=== PATIENT | male | born 1955 | race Caucasian/White ===

== ENCOUNTER 2021-11-15 01:56 | Day surgery (SDC) | payer BC, SELFPAY ==
[2021-11-01 14:39] VITALS: BMI 25.1
[2021-11-15 07:04] VITALS: BP 125/82; PULSE 69; RESP 20; O2SAT 98; BMI 24.7
[2021-11-15] MEDS: LACTATED RINGERS 1,000 ML 150 ML IV CONT (07:17)
--- NOTE | 2021-11-15 07:31 | WPDANESEPPF ---
Anes - Initial Pre Proc Eval Procedure: Operation Date: 11/15/21 08:00 Proposed Procedures p Colonoscopy - Morales Moffett MD Date/Time: 11/15/21 07:31 Surgeon: Morales Moffett MD Pre Op Diagnosis: positive cologuard Patient Data Age: 66 Gender: M Height: 1.83 m Weight: 82.8 kg Last Vital Signs Pulse 69 11/15/21 07:04 Resp 20 11/15/21 07:04 BP 125/82 11/15/21 07:04 Pulse Ox 98 11/15/21 07:04 O2 Del Method Room Air 11/15/21 07:04 Allergies Allergy/AdvReac Type Severity Reaction Status Date / Time No Known Allergies Allergy Verified 11/15/21 07:03 Home Medications Medication Instructions Recorded Confirmed Type testosterone cypionate 200 mg/mL 200 mg IM .every 2 weeks 01/05/21 11/01/21 History intramuscular oil (Depo-Testosterone) sildenafil 100 mg tablet 100 mg PO DAILY PRN sexual 05/25/21 11/01/21 Rx activity #30 tabs Patient hx anesthesia problems: none Family hx anesthesia problems: none Results Review: All pre-operative results and documents have been reviewed as part of the pre-operative evaluation. [facility] Past Medical History Medical History Hepatitis C antibody test negative (08/09/15) Pancreatic cyst Villous adenoma of gallbladder Surgical History Surgical History Hx of cholecystectomy Family History Family History Father Family history of malignant neoplasm Family history of cardiovascular disease, Onset Age: 72 Mother Family history of Alzheimer's disease Family history of dementia Other Diabetes mellitus Social History Social History (Updated 10/12/21 @ 08:59 by Ana Cullen CMA) Smoking status: Current some day smoker Alcohol intake: current Drinks per week: 5 Substance use type: does not use Anes - Eval Final PreProcedure Day of Procedure 11/15/21 07:31 Patient weight: normal Heart: regular rate and rhythm Lungs: clear to auscultation Airway: Mallampati scale class II Neurological: alert and oriented Last oral intake: >/= 8 hours ASA classification: II Emergent: no Anesthetic plan: proceed Anesthesia type and monitoring: general GIVS and standard monitoring Results Review: All pre-operative results and documents have been reviewed as part of the pre-operative evaluation. Informed Consent: The patient's anesthetic plan and its attendant risks and benefits were discussed with the patient/family/POA. Questions were solicited and answers provided to the satisfaction of the patient/family/POA.
--- NOTE | 2021-11-15 07:50 | PM.HPGS ---
History of Present Illness History of Present Illness Consent: Risks, benefits, and alternatives have been discussed and questions answered. Patient agrees to proceed with procedure. Chief complaint: positive cologuard Narrative: Kenton Gunn is a 66 year old male here for positive cologuard, last colonoscopy about 11 years ago Review of Systems Constitutional: Constitutional: Denies headache(s) and Denies weakness Eyes: Eyes: Denies blurry vision ENT: Reports Normal hearing present, Denies headache(s) and Denies neck pain Cardiovascular: Cardiovascular: Denies chest pain and Denies dyspnea Respiratory: Respiratory: Denies dyspnea Gastrointestinal: Gastrointestinal: Reports no additional gastrointestinal complaints Genitourinary: Genitourinary: Denies dysuria Musculoskeletal: Musculoskeletal: Denies neck pain Integumentary/Breasts: Skin/Breast: Denies dry skin Neurologic: Reports Normal hearing present, Denies headache(s) and Denies weakness Psychiatric: Psychiatric: Denies anxiety Endocrine: Endocrine: Denies change in body appearance Hematologic/Lymphatic: Hematologic/Lymphatic: Denies easy bleeding Allergic/Immunologic: Allergic/Immunologic: Denies urticaria PMFSH Past Medical History Medical History Hepatitis C antibody test negative (08/09/15) Pancreatic cyst Villous adenoma of gallbladder Surgical History Surgical History Hx of cholecystectomy Family History Family History Father Family history of malignant neoplasm Family history of cardiovascular disease, Onset Age: 72 Mother Family history of Alzheimer's disease Family history of dementia Other Diabetes mellitus Social History Social History (Updated 10/12/21 @ 08:59 by Ana Cullen [facility]) Smoking status: Current some day smoker Alcohol intake: current Drinks per week: 5 Substance use type: does not use Meds Home Medications and Allergies Home Medications Medication Instructions Recorded Confirmed Type testosterone cypionate 200 mg/mL 200 mg IM .every 2 weeks 01/05/21 11/01/21 History intramuscular oil (Depo-Testosterone) sildenafil 100 mg tablet 100 mg PO DAILY PRN sexual 05/25/21 11/01/21 Rx activity #30 tabs Allergies Allergy/AdvReac Type Severity Reaction Status Date / Time No Known Allergies Allergy Verified 11/15/21 07:03 Vital Signs Vital Signs - 24 hr 11/15/21 07:04 Pulse Rate 69 Respiratory Rate 20 Blood Pressure 125/82 Pulse Oximetry 98 Oxygen Delivery Room Air Exam Const: General: comfortable and no acute distress HENMT: General nose exam: Normal nares present Eyes: General: appearance normal, both eyes and all related structures Neck: Neck: no JVD Resp: Auscultation: clear to auscultation bilaterally Cardio: Rate: regular rate Rhythm: regular rhythm GI: Inspection: non-distended GI Palp: Yes Soft to palpation Skin: General skin exam: normal color Neuro: General: gait normal Speech: normal speech Extrem: General: normal to inspection Psych: Mental Status: mental status grossly normal Assessment and Plan Assessment and plan (1) Positive colorectal cancer screening using Cologuard test: Code(s): R19.5 - Other fecal abnormalities Status: Acute Assessment and Plan: colonoscopy
[2021-11-15 08:22] VITALS: BP 113/73; PULSE 64; RESP 15; O2SAT 96
[2021-11-15 08:32] VITALS: BP 121/81; PULSE 67; RESP 21; O2SAT 98
[2021-11-15 08:42] VITALS: BP 122/81; PULSE 62; RESP 17; O2SAT 98
== END 2021-11-15 08:47 | disposition home or self-care (01) ==
PROVIDERS: PCP Family Medicine; Visit Provider Internal Medicine Gastroenterology
PROC: 0DJD8ZZ Inspection of Lower Intestinal Tract, Via Natural or Artificial Opening Endoscopic (ICD-10-PCS; CPT 45378; principal; 2021-11-15 08:00)
DX: R19.5 Other fecal abnormalities (principal); K51.40 Inflammatory polyps of colon without complications; K57.30 Diverticulosis of large intestine without perforation or abscess without bleeding; K64.8 Other hemorrhoids; K86.2 Cyst of pancreas; Z90.49 Acquired absence of other specified parts of digestive tract; F17.210 Nicotine dependence, cigarettes, uncomplicated
CPT/HCPCS: 45385; 88305; J2001; J2704; J7120

== ENCOUNTER 2022-04-30 09:47 | Outpatient (CLI) | payer BC, SELFPAY ==
[2022-04-30 12:49] LABS: Kit Draw Collected
== END 2022-04-30 09:48 | disposition home or self-care (01) ==
LOC: ANHGOSHLAB 09:49
PROVIDERS: PCP Family Medicine; Visit Provider Nurse Practitioner
DX: R79.89 Other specified abnormal findings of blood chemistry (principal)
CPT/HCPCS: 36415

== ENCOUNTER 2022-06-21 11:47 | Emergency (ER) | payer BC, MEDICARE, SELFPAY ==
[2022-06-21 11:55] VITALS: BP 153/91; PULSE 80; RESP 16; TEMP 37.3; O2SAT 99
--- NOTE | 2022-06-21 11:55 | ED.URI ---
HPI - URI/Sore Throat General Chief Complaint: Upper Respiratory Infection Stated Complaint: SINUS CONGESTION/SORE THROAT Source: patient and RN notes reviewed History of Present Illness HPI Narrative: 66 yo M presents to urgent care with complaints of congestion, runny nose, sore throat, and ears feeling clogged x 1 week. Pt states he can usually kick a cold but this one is not going away. Pt reports an intermittent cough. Denies any chest pain, SOB, LOVE, ear pain, abdominal pain, or vomiting. Pt took an ASA yesterday for his symptoms. Related Data Allergies Allergy/AdvReac Type Severity Reaction Status Date / Time No Known Allergies Allergy Verified 05/04/22 08:33 Review of Systems Review of Systems: Pertinent positives and pertinent negatives per HPI. [facility] Past Medical History Medical History Abnormal findings on imaging of biliary tract Chronic cholecystitis Gallbladder mass Hepatitis C antibody test negative (08/09/15) Pancreatic cyst Villous adenoma of gallbladder Surgical History Surgical History Hx of cholecystectomy Family History Family History Father Family history of malignant neoplasm Family history of cardiovascular disease, Onset Age: 72 Mother Family history of Alzheimer's disease Family history of dementia Other Diabetes mellitus Social History Social History Smoking status: Never smoker Alcohol intake: current Drinks per week: 5 Substance use type: does not use Lack of Transportation: No Lack of Food: Never True Current Housing: I Have Housing Concerned About Future Housing: No Difficulty Paying Gas/Electric Bills: No Difficulty Paying for Meds: No Currently Unemployed: No Education: Associate Degree Difficulty w/ Childcare or Family Care: No Comments At the time of my signature, I reviewed and agree with the nursing past medical, surgical, social, and family history. There is no relevant family history pertinent to the patient complaint. Exam Narrative: GENERAL: This is a well-nourished, well-developed patient, in no apparent distress. HEAD: normocephalic, atraumatic. EYES: PERRL. Sclera clear/white. Vision is grossly intact. EARS: External ears normal, auditory canals clear and without drainage, TMs normal without perforation. Hearing grossly intact. NOSE:Congestion THROAT: Mucous membranes moist, posterior pharynx erythremic NECK: Neck supple, non-tender without lymphadenopathy, masses or thyromegaly. CARDIOVASCULAR: Regular rate and rhythm without murmurs, gallops, or rubs. RESPIRATORY: Clear to auscultation. Breath sounds equal bilaterally. No wheezes, rales, or rhonchi. GASTROINTESTINAL: Abdomen soft, non-tender, nondistended. Bowel sounds are active. No hepato-splenomegaly, or palpable masses. No guarding. SKIN: warm, intact with no suspicious lesions or rash, good texture and turgor. NEURO: awake, alert, and oriented to person, place and time. There were no obvious focal neurologic abnormalities. Course Course Level of Care: Express Care Visit Vital Signs Vital signs: Vital Signs Temperature 99.2 F 06/21/22 11:55 Pulse Rate 80 06/21/22 11:55 Respiratory Rate 16 06/21/22 11:55 Blood Pressure 153/91 H 06/21/22 11:55 Pulse Oximetry 99 06/21/22 11:55 Oxygen Delivery Room Air 06/21/22 11:55 Temperature 99.2 F 06/21/22 11:55 Pulse Rate 80 06/21/22 11:55 Respiratory Rate 16 06/21/22 11:55 Blood Pressure 153/91 H 06/21/22 11:55 Pulse Oximetry 99 06/21/22 11:55 Oxygen Delivery Room Air 06/21/22 11:55 Reviewed. MDM - URI/Sore Throat MDM Narrative Medical decision making narrative: Return to urgent care or go to the ER for new or worsening symptoms. Avoid s
== END 2022-06-21 12:07 | disposition home or self-care (01) ==
PROVIDERS: Emergency Provider Nurse Practitioner Family; PCP Family Medicine
DX: J01.90 Acute sinusitis, unspecified (principal)
CPT/HCPCS: 99213; G0463

== ENCOUNTER 2022-10-22 08:17 | Outpatient (CLI) | payer BC, MEDICARE, SELFPAY ==
[2022-10-22 12:01] LABS: Kit Draw Collected
== END 2022-10-22 08:18 | disposition home or self-care (01) ==
LOC: ANHGOSHLAB 08:19
PROVIDERS: PCP Family Medicine; Visit Provider Nurse Practitioner
DX: M10.9 Gout, unspecified (principal)
CPT/HCPCS: 36415

== ENCOUNTER 2022-11-14 08:53 | Outpatient (CLI) | payer BC, MEDICARE, SELFPAY ==
--- NOTE | 2022-11-14 08:56 | EST_ITS ---
Patient Info Name: Kenton Gunn Age: 67 years : 1955 Gender: Male Ht: 72 in Wt: 185 lbs BSA: 2.07 m2 HR: 65 bpm BP: 137 / 80 mmHg Heart Rhythm: Sinus Rhythm Exam Date: 11/14/2022 9:11 AM Exam Location: [facility] Stress Patient Status: Outpatient Admit Date: 11/14/2022 Staff Ordering Physician: Lennie Alaniz Attending Provider: Lennie Alaniz Exercise Technologist: Susana Gómez RDCS Exercise Physician: Miguel Paulino DO Exam Type: CA stress test treadmill Study Info An exercise stress test was performed. Summary 1. 1. Negative Philip exercise stress test for ischemic ST changes by ECG criteria. 2. 2. Good functional capacity, achieving 11.5 METs of workload. 3. 3. Hypertensive response to exercise. 4. 4. Appropriate HR response to exercise. 5. 5. Appropriate HR recovery at 1 minute post exercise. 6. 6. No imaging with stress testing. 7. 7. Patient informed of the above results. Protocol: Philip Stress ECG Details Stage: REST Duration (min): 1 min : 54 sec Speed (mph): 0.0 Grade (%): 0 HR (bpm): 67 SBP (mmHg): 137 DBP (mmHg): 80 METS: --- Stage: REST Duration (min): 6 min : 39 sec Speed (mph): 0.0 Grade (%): 0 HR (bpm): 68 SBP (mmHg): 137 DBP (mmHg): 80 METS: --- Stage: STAGE 1 Duration (min): 1 min : 0 sec Speed (mph): 1.7 Grade (%): 10 HR (bpm): 85 SBP (mmHg): 137 DBP (mmHg): 80 METS: --- Stage: STAGE 1 Duration (min): 2 min : 0 sec Speed (mph): 1.7 Grade (%): 10 HR (bpm): 89 SBP (mmHg): 137 DBP (mmHg): 80 METS: --- Stage: STAGE 1 Duration (min): 3 min : 0 sec Speed (mph): 1.7 Grade (%): 10 HR (bpm): 95 SBP (mmHg): 170 DBP (mmHg): 82 METS: --- Stage: STAGE 2 Duration (min): 1 min : 0 sec Speed (mph): 2.5 Grade (%): 12 HR (bpm): 99 SBP (mmHg): 170 DBP (mmHg): 82 METS: --- Stage: STAGE 2 Duration (min): 2 min : 0 sec Speed (mph): 2.5 Grade (%): 12 HR (bpm): 104 SBP (mmHg): 182 DBP (mmHg): 87 METS: --- Stage: STAGE 2 Duration (min): 3 min : 0 sec Speed (mph): 2.5 Grade (%): 12 HR (bpm): 104 SBP (mmHg): 182 DBP (mmHg): 87 METS: --- Stage: STAGE 3 Duration (min): 1 min : 0 sec Speed (mph): 3.4 Grade (%): 14 HR (bpm): 113 SBP (mmHg): 197 DBP (mmHg): 82 METS: --- Stage: STAGE 3 Duration (min): 2 min : 0 sec Speed (mph): 3.4 Grade (%): 14 HR (bpm): 117 SBP (mmHg): 197 DBP (mmHg): 82 METS: --- Stage: STAGE 3 Duration (min): 3 min : 0 sec Speed (mph): 3.4 Grade (%): 14 HR (bpm): --- SBP (mmHg): 211 DBP (mmHg): 113 METS: --- Stage: STAGE 4 Duration (min): 0 min : 41 sec Speed (mph): 4.2 Grade (%): 16 HR (bpm): 128 SBP (mmHg): 211 DBP (mmHg): 113 METS: --- Stage: RECOVERY Duration (min): 0 min : 18 sec Speed (mph): 0.0 Grade (%): 0 HR (bpm): 129 SBP (mmHg): 211 DBP (mmHg): 113 METS:
== END 2022-11-14 08:54 | disposition home or self-care (01) ==
LOC: ANHCARD 08:54
PROVIDERS: PCP Family Medicine; Visit Provider Nurse Practitioner
DX: R07.9 Chest pain, unspecified (principal)
CPT/HCPCS: 93017

== ENCOUNTER 2023-03-14 08:41 | Emergency (ER) | payer BC, MEDICARE, SELFPAY ==
--- NOTE | 2023-03-14 08:51 | ED.URI ---
HPI - URI/Sore Throat General Chief Complaint: Upper Respiratory Infection Stated Complaint: Sore Throat, Drainage Source: patient, RN notes reviewed and old records reviewed Mode of arrival: ambulatory Limitations: no limitations History of Present Illness HPI Narrative: 59-year-old male presents to Express Care with complaint of cough, congestion that started yesterday. Patient taking ibuprofen. Patient denies dizziness, weakness, chest pain, shortness of breath. MD elicited complaint: cough and nasal congestion Onset (ago): day(s) (1) Related Data Allergies Allergy/AdvReac Type Severity Reaction Status Date / Time No Known Allergies Allergy Verified 03/14/23 08:47 Review of Systems Constitutional: Constitutional: Reports no additional constitutional complaints, Denies body ache(s), Denies chills, Denies fatigue, Denies fever(s) and Denies headache(s) Eyes: Eyes: Reports no additional eye complaints and Denies blurry vision ENT: Reports system reviewed and no additional complaints, except as documented, Denies vertigo, Denies dizziness, Denies ear discharge, Denies otalgia, Denies facial pain, Denies headache(s), Reports nasal congestion, Denies nasal discharge, Denies sinus pain, Denies sinus pressure and Denies sore throat Cardiovascular: Cardiovascular: Reports no additional cardiovascular complaints, Denies chest pain, Denies chest pain at rest, Denies rapid heart rate and Denies dyspnea Respiratory: Respiratory: Reports no additional respiratory complaints, Reports chest congestion, Reports cough, Denies pain on inspiration, Denies pain with cough and Denies dyspnea Gastrointestinal: Gastrointestinal: Denies abdominal pain, Denies diarrhea, Denies nausea and Denies vomiting Integumentary/Breasts: Skin/Breast: Denies rash Neurologic: Reports system reviewed and no additional complaints, except as documented, Denies vertigo, Denies dizziness and Denies headache(s) Endocrine: Endocrine: Denies fatigue PMFSH Past Medical History Medical History Abnormal findings on imaging of biliary tract Chronic cholecystitis Gallbladder mass Hepatitis C antibody test negative (08/09/15) Pancreatic cyst Villous adenoma of gallbladder Surgical History Surgical History Hx of cholecystectomy Family History Family History Father Family history of malignant neoplasm Family history of cardiovascular disease, Onset Age: 72 Mother Family history of Alzheimer's disease Family history of dementia Other Diabetes mellitus Social History Social History Smoking status: Never smoker Alcohol intake: current Drinks per week: 5 Substance use type: does not use Lack of Transportation: No Lack of Food: Never True Current Housing: I Have Housing Concerned About Future Housing: No Difficulty Paying Gas/Electric Bills: No Difficulty Paying for Meds: No Currently Unemployed: No Education: Associate Degree Difficulty w/ Childcare or Family Care: No Comments At the time of my signature, I reviewed and agree with the nursing past medical, surgical, social, and family history. There is no relevant family history pertinent to the patient complaint. Exam Const: General: cooperative, healthy appearing, no acute distress and well nourished Nutritional Appearance: well nourished Orientation/consciousness: patient oriented x3 Limitations: no limitations HENMT: Head: normal to inspection and normocephalic Ears: external ears normal, TM's normal bilaterally, mastoids normal and Abnormal EAC present Face/Nose/Sinus: normal facial exam Face and sinus: normal facial exam Mouth: Yes Normal oral and palatal mucosa present, Yes oropharynx normal and Yes moist mucous membranes Throat:
[2023-03-14 08:52] VITALS: BP 132/76; PULSE 88; RESP 16; TEMP 36.6; O2SAT 100
== END 2023-03-14 09:19 | disposition home or self-care (01) ==
PROVIDERS: Emergency Provider Registered Nurse; PCP Family Medicine
DX: J06.9 Acute upper respiratory infection, unspecified (principal); Z20.822 Contact with and (suspected) exposure to COVID-19
CPT/HCPCS: 87081; 87426; 87804; 87880; 99213; C9803; G0463

== ENCOUNTER 2023-08-28 08:04 | Outpatient (CLI) | payer BC, MEDICARE, SELFPAY ==
--- NOTE | ~2023-08-28 | XR_ITS ---
XR shoulder RT min 2V 08/28/2023 08:23 Indication: Right shoulder pain Procedure: 5 views right shoulder Comparison: No prior studies for comparison. Findings: There is polyarticular osteoarthritis of the right shoulder. There are loose bodies adjacen t to the acromioclavicular joint. No acute fracture or traumatic malalignment. No soft tissue abnorma lity. No foreign bodies. 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 Reviewed, dictated and finalized at location B. 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
== END 2023-08-28 08:05 ==
PROVIDERS: PCP Family Medicine; Visit Provider Nurse Practitioner
DX: M19.011 Primary osteoarthritis, right shoulder (principal)
CPT/HCPCS: 73030

== ENCOUNTER 2024-06-27 08:43 | Emergency (ER) | payer BC, MEDICARE, SELFPAY ==
[2024-06-27] VITALS (40 sets, daily range): BP systolic 118–156; BP diastolic 61–96; PULSE 75–104; RESP 14–28; TEMP 36.3–36.6; O2SAT 90–99
--- NOTE | ~2024-06-27 | CT_ITS ---
EXAMINATION: CTA chest PE protocol DATE: 06/27/2024 10:40 INDICATION: Shortness of breath. Left-sided chest pain. TECHNIQUE: Computed tomography (CT) pulmonary angiogram of the chest was performed with 100 mL Omnipa que-350 intravenous contrast. Additional 3D reconstructions utilizing coronal maximum intensity proje ction (MIP) were performed. Automated exposure control and iterative reconstruction technique were em ployed. The dose-length product was 419.59 mGy-cm. COMPARISON: None FINDINGS: No pulmonary embolism. Small bilateral posterior layering pleural effusions. There are regions of raeann undglass opacity with perihilar, dependent and lower lung predominance which could represent pulmonar y edema or pneumonia. Smooth septal line thickening at the bilateral lung bases consistent with mild pulmonary edema. Heart size is normal. Atherosclerotic coronary artery calcification is. No pericardi al effusion. Thoracic aorta is normal in caliber. No pathologically enlarged thoracic lymphadenopathy . Visualized upper abdomen is unremarkable. Mild to moderate thoracic spondylosis with bridging osteo phytes at multiple levels consistent with diffuse idiopathic skeletal hyperostosis (DISH). Severe upp er lumbar spondylosis. IMPRESSION: 1. No pulmonary embolism. 2. Patchy bilateral groundglass opacities with distribution and presence of smooth septal line thicke phillip at the bilateral lung bases favoring pulmonary edema over pneumonia. 3. Small bilateral pleural effusions. Reviewed, dictated and finalized at location A. IMPRESSION: 1. No pulmonary embolism. 2. Patchy bilateral groundglass opacities with distribution and presence of smo oth septal line thickening at the bilateral lung bases favoring pulmonary edema over pneumonia. 3. Small bilateral pleural effusions.
--- NOTE | ~2024-06-27 | XR_ITS ---
EXAMINATION: XR chest 1V portable DATE: 06/27/2024 09:13 INDICATION: Shortness of breath and left-sided chest pain TECHNIQUE: frontal view of the chest was obtained. COMPARISON: None FINDINGS: Mild reticular opacities at the lung bases and blunting at the left cardiophrenic angle. No other air space opacities, pneumothorax or right pleural effusion. The cardiomediastinal silhouette is normal. IMPRESSION: 1. Mild reticular opacities at the bilateral lung bases which could represent atelectasis, mild pulmo nary edema or pneumonia. 2. Blunting at the left cardiophrenic angle which could represent small left pleural effusion. Reviewed, dictated and finalized at location A. IMPRESSION: 1. Mild reticular opacities at the bilateral lung bases which could represent a telectasis, mild pulmonary edema or pneumonia. 2. Blunting at the left cardiophrenic angle which could represent small left pl eural effusion.
--- NOTE | 2024-06-27 08:52 | ED_ITS ---
HPI - SOB/Dyspnea General Chief Complaint: Shortness of Breath/Dyspnea Stated Complaint: chest pain Time Seen by Provider: 06/27/24 08:52 Source: patient Mode of arrival: ambulatory Limitations: no limitations History of Present Illness HPI Narrative: 68-year-old male, Nonsmoker with a history of anxiety, dyslipidemia, gout, prediabetes with a negative stress test on 11/14/2022 presents to the ED with a one-week history of -- shortness of breath. Patient has shortness of breath at rest. He has some cough and mucoid sputum. -- left lower chest pain. Pain started after he was lifting weights with his son. Pain is rated as 4/10. No radiation of the pain. No relation to activity. -- diarrhea for the past 2-3 days. He has had 3 episodes of watery diarrhea. No blood or mucus. MD elicited complaint: shortness of breath and chest pain Onset (ago): day(s) ( 7 days) Timing: constant Severity: moderate Exacerbating factors: nothing Relieving factors: nothing Associated symptoms: chest pain and cough Treatment prior to arrival: none Related Data Home oxygen amount: none Allergies Allergy/AdvReac Type Severity Reaction Status Date / Time No Known Allergies Allergy Verified 06/27/24 09:31 Review of Systems 2 Review of Systems: All systems reviewed & are unremarkable except as noted in HPI and below Constitutional: Constitutional: Reports as per HPI and Reports no additional constitutional complaints Eyes: Eyes: Reports as per HPI and Reports no additional eye complaints ENT: Reports system reviewed and no additional complaints, except as documented and Reports as per HPI Cardiovascular: Cardiovascular: Reports as per HPI, Reports no additional cardiovascular complaints and Reports chest pain Respiratory: Respiratory: Reports as per HPI, Reports no additional respiratory complaints and Reports dyspnea Gastrointestinal: Gastrointestinal: Reports as per HPI, Reports no additional gastrointestinal complaints and Reports diarrhea Genitourinary: Genitourinary: Reports no additional male genitourinary complaints and Reports as per HPI Musculoskeletal: Musculoskeletal: Reports no additional musculoskeletal complaints and Reports as per HPI Integumentary/Breasts: Skin/Breast: Reports system reviewed and no additional complaints, except as docu and Reports as per HPI Neurologic: Reports system reviewed and no additional complaints, except as documented and Reports as per HPI Psychiatric: Psychiatric: Reports no additional psychiatric complaints, Reports as per HPI and Reports anxiety Endocrine: Endocrine: Reports no additional endocrine complaints and Reports as per HPI Hematologic/Lymphatic: Hematologic/Lymphatic: Reports no additional hematologic/lymphatic complaints and Reports as per HPI Allergic/Immunologic: Allergic/Immunologic: Reports no additional allergic/immunologic complaints and Reports as per HPI [facility] Past Medical History Medical History Gallbladder mass Chronic cholecystitis Abnormal findings on imaging of biliary tract Hepatitis C antibody test negative (08/09/15) Pancreatic cyst Villous adenoma of gallbladder Surgical History Surgical History Hx of cholecystectomy Family History Family History Father Family history of malignant neoplasm Family history of cardiovascular disease, Onset Age: 72 Mother Family history of Alzheimer's disease Family history of dementia Other Diabetes mellitus Social History Social History Smoking status: Never smoker Alcohol intake: current Drinks per week: 5 Substance use: never Substance use type: does not use Do You Feel Safe in your Home?: Yes Lack of Transportation: No Lack of Food: Never True Current Housing: I Have Housing Concerned About Future Housing: No Difficulty Paying Gas/Electric Bills: No Difficulty Paying for Meds: No Currently Unemployed: No Education: Associate Degree Difficulty w/ Childcare or Family Care: No Living arrangements: with family Occupation/Education: occupation Gender identity (if verbalized by the patient): Male Agree to blood products: Yes Exam 2 Const: General: no acute distress Nutritional Appearance: well nourished Orientation/consciousness: patient oriented x3 Limitations: no limitations HENMT: Head: normal to inspection Ears: external ears normal F rabia/Nose/Sinus: Normal external nose present Face and sinus: normal facial exam Mouth: Yes Normal oral and palatal mucosa present Throat: posterior oropharynx normal Eyes: Conjunctivae: conjunctivae normal Pupils: Equal, round and reactive pupils present EOM: EOMs intact bilaterally Direct Ophthalmoscopy: no photophobia Neck: Neck: normal visual inspection, no lymphadenopathy and no meningeal signs Chest: Chest palpation & inspection: normal inspection of the chest Resp: Effort & Inspection: normal respiratory effort Other: basilar rales. Cardio: Rate: regular rate Rhythm: regular rhythm Heart sounds: Murmur heart sound present Other: systolic murmur at the base. GI: GI Palp: Yes Soft to palpation Auscultation: normal bowel sounds O ther: No tenderness/ rigidity /rebound. : General: Yes no CVA tenderness Back/Spine/Pelvis: Back: no CVA tenderness Skin: General skin exam: normal color Rashes: no rashes Wounds: no wounds Neuro: General: patient oriented x3, moves all extremities, no meningeal signs, no focal motor deficits and CN's II-XI intact bilaterally Cranial nerves: Yes Nystagmus not present Speech: normal speech Gait exam (Neuro): Normal gait present Extrem: General: normal to inspection and no clubbing, cyanosis or edema Psych: Mental Status: mental status grossly normal Affect: normal affect Attitude: cooperative Course Course Emergency Course: Chest pain- EKG did not show any acute findings. Troponin was noted to be negative shortness of breath secondary to new onset CHF. CT is negative for PE. ABG was noted to be 749/34/61/92% on room air diarrhea Vital Signs Vital signs: Vital Signs Pulse Oximetry 99 06/27/24 08:45 Oxygen Delivery Room Air 06/27/24 08:45 Temperature 36.3 C L 06/27/24 09:06 Pulse Rate 78 06/27/24 13:20 Respiratory Rate 20 06/27/24 11:15 Blood Pressure 133/80 06/27/24 10:15 Pulse Oximetry 92 06/27/24 11:15 Oxygen Delivery Room Air 06/27/24 09:06 MDM - SOB/Dyspnea MDM Narrative Medical decision making narrative: new onset CHF chest pain Differential Diagnosis Differential diagnosis: Likely acute exacerbation of chronic obstructive airways disease, community acquired pneumonia and pulmonary embolism Medical Records Attestation: I reviewed the patient's medical records. Lab Data Attestation: I reviewed the patient's lab results. 06/27/24 09:15 06/27/24 09:15 Labs: Lab Results 06/27/24 06/27/24 06/27/24 Range/Units 09:15 09:45 11:15 WBC 15.1 H (4.8-10.8) K/mm3 RBC 4.94 (4.70-6.10) M/mm3 Hgb 15.6 H (12.4-15.3) g/dL Hct 46.5 H (37.0-46.0) % MCV 94.1 (78.0-102.0) fL MCH 31.6 H (27.0-31.0) pg MCHC 33.5 (32-36) g/dL RDW 13.2 (11.6-14.4) % Plt Count 253 (150-420) K/mm3 MPV 9.8 (8.7-11.0) fl Immature Gran % (Auto) 0.4 H (0.0-0.0) % Neut % (Auto) 73.6 H (50.0-70.0) % Lymph % (Auto) 11.1 L (18.0-42.0) % Brule % (Auto) 12.1 H (2.0-11.0) % Eos % (Auto) 2.3 (1.0-6.0) % Baso % (Auto) 0.5 (0.0-1.0) % Lymph # (Auto) 1.67 (1.10-4.50) K/mm3 Brule # (Auto) 1.82 H (0.10-0.90) K/mm3 Eos # (Auto) 0.34 (0.02-0.50) K/mm3 Baso # (Auto) 0.07 (0.00-0.10) K/mm3 Abs Immat Gran (auto) 0.06 H (0.00-0.00) K/mm3 Absolute Neuts (auto) 11.11 H (1.70-7.20) K/mm3 Absolute Nucleated RBC 0.00 (0.00-0.00) K/mm3 Nucleated RBC % 0.0 (0-0.0) % D-Dimer 0.99 H* (0.19-0.50) mg/L Sodium 137 (136-145) mmol/L Potassium 4.1 (3.5-5.1) mmol/L Chloride 104 (98-108) mmol/L Carbon Dioxide 25 (21-32) mmol/L Anion Gap 8 (4-12) mmol/L BUN 19 H (7-18) mg/dL Creatinine 0.97 (0.70-1.30) mg/dL Estim Creat Clear Calc 70 ml/min Estimated GFR > 60 (59 - ) Glucose 132 H (70-99) mg/dL Calculated Osmolality 288 (285-295) mOsm/kg Lactic Acid 1.8 (0.4-2.0) mmol/L Calcium 8.3 L (8.5-10.1) mg/dL Total Bilirubin 0.8 (0.00-1.00) mg/dL AST 25 (15-37) U/L ALT 31 (16-63) U/L Alkaline Phosphatase 72 (46-116) U/L Troponin I 36.0 (0.00-60.4) ng/L NT-Pro-B Natriuret Pep 1227 H (0-125) pg/mL Total Protein 6.1 L (6.4-8.2) g/dL Albumin 2.9 L (3.4-5.0) g/dL Urine Color Light yellow (Yellow) Urine Appearance Clear (Clear) Urine pH 6.5 (5.0-8.0) Ur Specific [place] 1.010 (1.010-1.020) Urine Protein Negative (Negative) Urine Glucose (UA) Negative (Negative) Urine Ketones Negative (Negative) Ur Blood (Man) Negative (Negative) Urine Nitrate Negative (Negative) Urine Bilirubin Negative (Negative) Urine Urobilinogen 0.2 (0.2-1.0) mg/dL Leukocyte Esterase Rfl Negative (Negative) VERA/UL Influenza A (RT-PCR) Negative (Negative) Influenza B (RT-PCR) Negative (Negative) RSV (RT-PCR) Negative (Negative) SARS-CoV-2 RNA (RT-PCR) Negative (Negative) ABG Data ABG results: 06/27/24 09:15 Puncture Site Right radial ABG pH 7.49 H ABG pCO2 33.9 L ABG pO2 61.4 L ABG HCO3 25.3 ABG O2 Saturation 91.7 L ABG Base Excess 2.5 H Oxyhemoglobin 91.1 L O2 Delivery Device Room air O2 Liters/Min 0.0 ECG Data EKG #1: ECG completion date: 06/27/24 ECG completion time: 08:50 Interpretation: sinus tachycardia with a heart rate of 104. Normal axis. No ST elevation. Discharge Plan Discharge Clinical Impression: Chest pain CHF (congestive heart failure) Qualifiers: Heart failure type: unspecified Heart failure chronicity: acute Qualified Code(s): I50.9 - Heart failure, unspecified Patient Disposition: Still a Patient Condition: Stable Additional Instructions: transfer patient to [facility]. Patient has been accepted by Patient Language: Rwandan Prescriptions: No Action sildenafil 100 mg tablet 100 mg PO DAILY PRN (Reason: sexual activity) Qty: 30 2RF Rx Instructions: administer 30 minutes to 4 hours before activity testosterone cypionate 200 mg/mL oil 200 mg IM .14 days Qty: 6 1RF allopurinol 100 mg tablet See Rx Instructions .ROUTE .COMPLEX Qty: 90 1RF Dose Instruction: 100 MG ORALLY DAILY Rx Instructions: 100 MG ORALLY DAILY Follow-up/Referrals: UNKNOWN,DOCTOR [Non-Staff] - Time of Disposition: 13:33
--- NOTE | 2024-06-27 09:06 | ECG_ITS ---
Test Date: 2024-06-27 08:50:33 Measurements Intervals [place] Rate: 104 P: 68 NM: 144 QRS: 66 QRSD: 94 T: 30 QT: 336 QTc: 442 Interpretive Statements SINUS TACHYCARDIA LEFT ATRIAL ENLARGEMENT BORDERLINE ST-T WAVE ABNORMALITY- INFERIOR LEADS BASELINE ARTIFACT- I, III, AVL, AVF BORDERLINE ECG No previous ECG available for comparison Electronically Signed On 06-29-2024 06:19:52 CDT by Miguel Paulino D.O.
[2024-06-27 09:22] LABS: Base Excess ABG 2.5 mmol/L (0-2); HCO3 ABG 25.3 mmol/L (23-29); Oxygen Saturation ABG 91.7 % (95-97); Oxyhemoglobin 91.1 % (94-100); PCO2 ABG 33.9 mmHg (35-45); PO2 ABG 61.4 mmHg (75-85); pH ABG 7.49 (7.35-7.45)
[2024-06-27 09:23] LABS: Device ROOM AIR; Modified Allen's Test Pass; Site Drawn RIGHT RADIAL
[2024-06-27 09:24] LABS: Basophils Absolute Auto 0.07 K/mm3 (0.00-0.10); Basophils Percent Auto 0.5 % (0.0-1.0); Eosinophils Absolute Auto 0.34 K/mm3 (0.02-0.50); Eosinophils Percent Auto 2.3 % (1.0-6.0); Hematocrit 46.5 % (37.0-46.0); Hemoglobin 15.6 g/dL (12.4-15.3); Immature Granulocyte Absolute 0.06 K/mm3 (0.00-0.00); Immature Granulocyte Percent A 0.4 % (0.0-0.0); Lymphocytes Absolute Auto 1.67 K/mm3 (1.10-4.50); Lymphocytes Percent Auto 11.1 % (18.0-42.0); Mean Corpuscular HGB Conc 33.5 g/dL (32-36); Mean Corpuscular Hemoglobin 31.6 pg (27.0-31.0); Mean Corpuscular Volume 94.1 fL (78.0-102.0); Mean Platelet Volume 9.8 fl (8.7-11.0); Monocytes Absolute Auto 1.82 K/mm3 (0.10-0.90); Monocytes Percent Auto 12.1 % (2.0-11.0); Neutrophils Absolute Auto 11.11 K/mm3 (1.70-7.20); Neutrophils Percent Auto 73.6 % (50.0-70.0); Platelet Count Result 253 K/mm3 (150-420); Red Blood Count 4.94 M/mm3 (4.70-6.10); Red Cell Distribution Width 13.2 % (11.6-14.4); White Blood Count 15.1 K/mm3 (4.8-10.8)
[2024-06-27 09:42] LABS: Lactic Acid Reflex 1.8 mmol/L (0.4-2.0)
[2024-06-27 09:47] LABS: Alanine Aminotransferase 31 U/L (16-63); Albumin Level 2.9 g/dL (3.4-5.0); Alkaline Phosphatase 72 U/L (46-116); Anion Gap 8 mmol/L (4-12); Aspartate Amino Transferase 25 U/L (15-37); Bilirubin,Total 0.8 mg/dL (0.00-1.00); Blood Urea Nitrogen 19 mg/dL (7-18); Calcium 8.3 mg/dL (8.5-10.1); Carbon Dioxide 25 mmol/L (21-32); Chloride 104 mmol/L (98-108); Estimated CRCL calculation 70 ml/min; Estimated Glomerular Filt Rate > 60; Glucose 132 mg/dL (70-99); NT Pro B Type Natriuretic Pept 1227 pg/mL (0-125); Osmolality Calculated 288 mOsm/kg (285-295); Potassium 4.1 mmol/L (3.5-5.1); Sodium 137 mmol/L (136-145); Total Protein 6.1 g/dL (6.4-8.2)
[2024-06-27 09:51] LABS: D Dimer 0.99 mg/L (0.19-0.50)
[2024-06-27 10:07] LABS: Add Urine Microscopic? NO; Appearance Urine Clear (Clear); Bilirubin Urine Negative (Negative); Blood Urine Negative (Negative); Color Urine Light Yellow (Yellow); Glucose Urine UA Negative (Negative); Ketones Urine Negative (Negative); Leukocyte Esterase Ur Negative LEU/UL (Negative); Nitrate Urine Negative (Negative); Protein Urine Negative (Negative); Urobilinogen Urine 0.2 mg/dL (0.2-1.0); pH Urine 6.5 (5.0-8.0)
--- NOTE | 2024-06-27 11:18 | PC.NURSE ---
covid swab sent to lab
[2024-06-27 12:02] LABS: Influenza A QL RT-PCR Negative (Negative); Influenza B QL RT-PCR Negative (Negative); RSV RNA, RT-PCR Negative (Negative); SARS-CoV-2 RNA PCR Negative (Negative)
== END 2024-06-27 13:46 | disposition short-term general hospital (02) ==
PROVIDERS: Emergency Provider Internal Medicine Critical Care Medicine
DX: I50.9 Heart failure, unspecified (principal); Z20.822 Contact with and (suspected) exposure to COVID-19
CPT/HCPCS: 36415; 36600; 71045; 71275; 80053; 81003; 82805; 83605; 83880; 84484; 85025; 85380; 87637; 93005; 99285; Q9967

== ENCOUNTER 2024-06-27 14:39 | Inpatient (IN) | payer BC, MEDICARE, SELFPAY ==
[2024-06-27 15:05] VITALS: BMI 25.4
[2024-06-27 15:35] VITALS: BP 120/70; PULSE 90; RESP 18; TEMP 36.9; O2SAT 92
--- NOTE | 2024-06-27 15:39 | P.HP_ITS ---
H&P: HPI History of Present Illness Date/Time: 06/27/24 15:39 Chief Complaint: Chest pain Narrative: 68-year-old male history of anxiety, hyperlipidemia, gout and presents the hospital chest pain and shortness of breath x1 week. Patient states that has progressively gotten worse over the past week. Patient states that he was lifting weights with this son when he had chest pain for a 10. Pain did not radiate, denies arm pain, jaw pain or back pain. Patient also states that he had 2 or 3 episodes of diarrhea. Denies fever chills. Patient states that he is about 2 shots of hard liquor a night. Patient went to the outside hospital his lab work showed leukocytosis of 15.1, hemoglobin of 15.6, D-dimer of 0.99, ABG shows hypoxia by ED attending believes that could be a VBG, glucose 132, BNP 1227, UA negative for infection, influenza A/B, RSV, COVID negative. Shows CT shows no pulmonary embolism,Patchy bilateral groundglass opacities with distribution and presence of smooth septal line th ickening at the bilateral lung bases favoring pulmonary edema over pneumonia, and Small bilateral pleural effusions. Patient is being transferred to [facility] for higher level of care presents with new CHF. Review of Systems Review of Systems: 12 systems were reviewed and are negativ e except for as per HPI. [facility] Past Medical History Medical History Gallbladder mass Chronic cholecystitis Abnormal findings on imaging of biliary tract Hepatitis C antibody test negative (08/09/15) Pancreatic cyst Villous adenoma of gallbladder Surgical History Surgical History Hx of cholecystectomy Family History Family History (Updated 06/27/24 @ 15:22 by Lacey Navas RN) Father Family history of cardiovascular disease, Onset Age: 72 Family history of malignant neoplasm Diabetes mellitus Mother Family history of Alzheimer's disease Family history of dementia Social History Social History Smoking status: Never smoker Alcohol intake: current Drinks per week: 14 Substance use: never Substance use type: does not use Do You Feel Safe in your Home?: Yes Lack of Transportation: No Lack of Food: Never True Current Housing: I Have Housing Concerned About Future Housing: No Difficulty Paying Gas/Electric Bills: No Difficulty Paying for Meds: No Currently Unemployed: No Education: High School Diploma/GED Difficulty w/ Childcare or Family Care: No Living arrangements: with family Occupation/Education: occupation Gender identity (if verbalized by the patient): Male Spiritual care concerns: No Agree to blood products: Yes Meds Home Medications and Allergies Home Medications ?Medication ?Instructions ?Recorded ?Confirmed ?Type sildenafil 100 mg tablet 100 mg PO DAILY PRN sexual 04/29/23 06/27/24 Rx activity #30 tabs testosterone cypionate 200 mg/mL 200 mg IM .14 days #6 mL 03/06/24 06/27/24 Rx intramuscular oil allopurinol 100 mg tablet See Rx Instructions .Route 05/13/24 06/27/24 Rx .COMPLEX #90 tabs Allergies Allergy/AdvReac Type Severity Reaction Status Date / Time No Known Allergies Allergy Verified 06/27/24 15:33 Vital Signs Vital Signs - 24 hr 06/27/24 15:35 Temperature 98.5 F Pulse Rate 90 Respiratory Rate 18 Blood Pressure 120/70 Pulse Oximetry 92 Exam Narrative: General: well appearing, appears stated age. HEENT: normocephalic, atraumatic. Mucous membranes moist. EOMI, PERRLA, bilateral sclera anicteric, no conjunctival injection. Neck supple without JVD, lymphadenopathy, or bruit. Respiratory: clear to ascultation bilaterally. No rales/rhonic/wheezes. Cardiovascular: Regular rate and rhythm, normal S1-S2 upon ascultation. No mur murs, rubs, or clicks. PMI is nondisplaced, capillary refill less than 3 second. Abdomen: Soft, round, no pulsatile masses, nondistended and nontender. No rebound, no guarding. No CVA tenderness, no hepatosplenomegaly. Bowel sounds present to all four quadrants. No high pitch or tinkling sounds, resonant to percussion. Extremities: No cyanosis, clubbing, or edema present. Pulses are palpable 2/2. Active ROM to all four extremities. Neuro: Alert and orientated x 4. PERRLA. Cranial nerves 2-12 intact without focal deficit. Skin: Warm, dry, and intact, without rash, erythema, or lesion. Psych: pleasant, cooperative, normal speech, normal affect, no hallucinations, no dysarthia Assessment and Plan Assessment and plan (1) Elevated brain natriuretic peptide (BNP) level: Code(s): R79.89 - Other specified abnormal findings of blood chemistry Status: Acute Assessment and Plan: Cardiology consulted pending recommendations Echocardiogram pending (2) Pulmonary edema: Code(s): J81.1 - Chronic pulmonary edema Status: Acute Assessment and Plan: Patchy bilateral groundglass opacities with distribution and presence of smooth septal line thickening at the bilateral lung bases favoring pulmonary edema over pneumonia. Unable to tell, will treat with antibiotics No signs of respiratory distress will defer to Cardiology for diuretics 1800 fluid restriction Heart healthy diet (3) Leukocytosis: Code(s): D72.829 - Elevated white blood cell count, unspecified Status: Acute Assessment and Plan: Possible pneumonia seen on chest CT Rocephin and azithromycin (4) Pleural effusion: Code(s): J90 - Pleural effusion, not elsewhere classified Status: Acute Assessment and Plan: Small bilateral pleural effusions. Likely related to fluid overload (5) ETOH abuse: Code(s): F10.10 - Alcohol abuse, uncomplicated Status: Acute Assessment and Plan: Daily drinker CIWA protocol (6) Gout: Code(s): M10.9 - Gout, unspecified Status: Acute Assessment and Plan: Okay to restart home med Quality VTE Prophylaxis VTE prophylaxis: mechanical ordered and pharmacologic ordered Hospitalist MIPS Advance Care Plan I have confirmed that the patient's Advanced Care Plan is present, code status is documented, or surrogate decision maker is listed in patient medical record.: Yes Medication Reconciliation I have utilized all available resources to obtain, update and review the patients current medications (includes all prescriptions, OTC, herbals, cannabis, and nutritional supplements).: Yes
[2024-06-27 16:00] VITALS: BP 120/70
[2024-06-27 17:17] LABS: Glucose Point of Care 147 mg/dl (65-105)
[2024-06-27 18:01] VITALS: BP 131/82; PULSE 90; RESP 16; TEMP 37.6; O2SAT 91
[2024-06-27 20:00] VITALS: PULSE 82
[2024-06-27 21:13] LABS: Glucose Point of Care 118 mg/dl (65-105)
[2024-06-28] VITALS (12 sets, daily range): BP systolic 116–128; BP diastolic 56–98; PULSE 76–88; RESP 16–18; TEMP 36.5–37.9; O2SAT 91–96
[2024-06-28] MEDS: AZITHROMYCIN 500 MG/NS 250 ML 500 MG/250 ML BAG 250 MG IVPB (00:08)
[2024-06-28 05:57] LABS: Basophils Absolute Auto 0.1 K/mm3 (0.0-0.1); Basophils Percent Auto 0.5 % (0.2-1.2); Eosinophils Absolute Auto 0.5 K/mm3 (0-0.3); Eosinophils Percent Auto 3.3 % (0-4.4); Hematocrit 47.4 % (42.0-52.0); Immature Granulocyte Absolute 0.06 K/mm3 (0.00-0.031); Immature Granulocyte Percent A 0.4 % (0-0.5); Lymphocytes Absolute Auto 2.15 K/mm3 (0.9-3.2); Lymphocytes Percent Auto 14.1 % (18.3-44.2); Mean Corpuscular HGB Conc 33.8 g/dl (32-36); Mean Corpuscular Hemoglobin 31.9 pg (26-34); Mean Corpuscular Volume 94.4 fl (80-100); Mean Platelet Volume 9.9 fl (7.4-10.4); Monocytes Absolute Auto 1.9 K/mm3 (0.1-0.6); Monocytes Percent Auto 12.1 % (2.6-8.5); Neutrophils Absolute Auto 10.6 K/mm3 (1.3-6.7); Neutrophils Percent Auto 69.6 % (45.5-73.1); Platelet Count Result 239 k/mm3 (150-375); Red Blood Count 5.02 M/mm3 (4.6-6.20); Red Cell Distribution Width 13.2 % (11.5-14.5); White Blood Count 15.2 K/mm3 (4.5-10.0)
[2024-06-28 06:09] LABS: Anion Gap 6 mmol/L (4-12); Blood Urea Nitrogen 15 mg/dL (9-20); Calcium 8.3 mg/dL (8.4-10.2); Carbon Dioxide 25 mmol/L (22-30); Chloride 103 mmol/L (98-107); Estimated CRCL calculation 74 ml/min; Estimated Glomerular Filt Rate > 60; Glucose 102 mg/dL (65-110); Potassium 4.1 mmol/L (3.4-5.0); Sodium 134 mmol/L (137-145)
[2024-06-28 07:32] LABS: Toxigenic C. Diff NEGATIVE (NEGATIVE)
--- NOTE | 2024-06-28 08:04 | PM.IMPN ---
Progress Note: A&P Assessment and Plan (1) Mitral regurgitation: Code(s): I34.0 - Nonrheumatic mitral (valve) insufficiency Status: Acute Assessment and Plan: Mitral regurgitation heard on assessment. Denies history of MR. Echo ordered to further assess severity Cardiology consulted (2) Pulmonary edema: Code(s): J81.1 - Chronic pulmonary edema Status: Acute Assessment and Plan: Endorsing exertional dyspnea and orthopnea. Denies ROHINI. No personal cardiac history, but extensive family history. - BNP: 1227 - EKG sinus rhythm - IV lasix 40 mg x1, lungs clear on auscultation - Chest XR: 1. Mild reticular opacities at the bilateral lung bases which could represent atelectasis, mild pulmonary edema or pneumonia. 2. Blunting at the left cardiophrenic angle which could represent small left pleural effusion. - Chest CTA: 1. No pulmonary embolism. 2. Patchy bilateral ground glass opacities with distribution and presence of smooth septal line thickening at the bilateral lung bases favoring pulmonary edema over pneumonia. 3. Small bilateral pleural effusions. Likely pulmonary edema given that patient is afebrile, denies cough, sick contacts, and has clear lung sounds on exam - Echo ordered - Monitor vital signs, I&Os, BUN/creatinine, daily weights, neuro status and patient is a fall risk - Monitor serum electrolytes, Keep serum Potassium>4 and serum Magnesium>2 and CBC - Cardiology consulted (3) ETOH abuse: Code(s): F10.10 - Alcohol abuse, uncomplicated Status: Acute Assessment and Plan: Patient drinks 2 shots of liquor nightly. Denies history of withdrawal. [place] protocol (4) Chest pain: Qualifiers: Chest pain type: unspecified Qualified Code(s): R07.9 - Chest pain, unspecified Code(s): R07.9 - Chest pain, unspecified Status: Acute Assessment and Plan: Likely musculoskeletal as pain started after lifting weights with his son Troponin negative EKG unremarkable No longer endorsing chest pain Time Spent With Patient Time with patient: 25 - 35 minutes Subjective Date/time seen: 06/28/24 08:04 Interval history: 68 year old male with past medical history of hyperlipidemia and gout presents to the hospital for chest pain and shortness of breath. Patient is pleasant sitting up in his chair with at bedside. He continues to endorse exertional dyspnea and orthopnea. He states that the chest pain has resolved. He denies lower extremity edema. He has no other complaints denying palpitations, nausea/vomiting and abdominal pain. Review of Systems Review of Systems: All systems reviewed & are unremarkable except as noted in HPI and below Exam Narrative: AF HR 85 RR 16 Spo2 91 BP 123/56 General: male in no acute respiratory distress who is nontoxic appearing, lying semi recumbent in bed. HEENT: Normocephalic. Atraumatic. Extraocular movement intact. Sclera clear and anicteric.No facial asymmetry. Chest: Lungs are clear to auscultation bilaterally. No wheezes. CV: Heart was regular rate and rhythm. S1/S2. No gallops or rubs. Murmur likely MR. Abd: Abdomen was soft. Nontender. Nondistended. Positive bowel sounds. Ext: No clubbing, cyanosis, or edema. DP pulses bilaterally. Neuro: Patient is alert and oriented x4. Speech is clear. Objective Data Vital Signs Vital Signs: Vital Signs - 24 hr 06/27/24 15:35 06/27/24 16:00 06/27/24 18:01 Temperature 98.5 F 99.6 F Pulse Rate 90 90 Respiratory Rate 18 16 Blood Pressure 120/70 120/70 131/82 Pulse Oximetry 92 91 Oxygen Delivery 06/27/24 20:00 06/27/24 20:00 06/28/24 00:00 Temperature Pulse Rate 82 84 Respiratory Rate Blood Pressure Pulse Oximetry Oxygen Delivery Room Air 06/28/24 04:00 06/28/24 05:05 06/28/24 06:34 Temperature 100.3 F H 98.6 F Pulse Rate 79 86 Respiratory Rate 16 Blood Pressure 123/56 L Pulse Oximetry 91 Oxygen Delivery Intake/Output Intake/Output: Intake & Output 06/25/24 06/26/24 06/27/24 06/28/24 23:59 23:59 23:59 23:59 Intake Total 120 660 Output Total 225 Balance 120 435 Meds/Results Medications: Active Medications Generic Name Dose Route Start Last Admin Trade Name Freq PRN Reason Stop Dose Admin Acetaminophen 650 mg 06/27/24 15:42 Acetaminophen 325 Mg Tablet PO Q4H PRN Mild Pain (1-3) or Fever Allopurinol 100 mg 06/28/24 09:00 Allopurinol 100 Mg Tablet BY MOUTH DAILY [facility] Enoxaparin Sodium 40 mg 06/28/24 09:00 Enoxaparin 40 Mg/0.4 Ml Syringe SUB-Q DAILY [facility] Ceftriaxone Sodium 1 gm in 50 mls @ 100 mls/hr 06/27/24 23:00 06/28/24 00:08 Rocephin 1 Gm/Ns 50 Ml IVPB Infused Q24H [facility] Infusion Azithromycin 500 mg in 250 mls @ 250 mls/hr 06/27/24 23:00 06/28/24 01:08 Zithromax IVPB Infused Q24H [facility] Infusion Perflutren Lipid Microsphere 0 ml 06/27/24 15:42 Perflutren Lipid Microspheres 1.5 Ml Vial Diluted To 10 Ml Total Volume IV PUSH 06/30/24 15:46 ONCE PRN adequate visualization Protocol Labs Labs: Laboratory Results - last 24 hr 06/27/24 06/27/24 06/28/24 17:11 20:45 05:32 WBC 15.2 H RBC 5.02 Hgb 16.0 Hct 47.4 MCV 94.4 MCH 31.9 MCHC 33.8 RDW 13.2 Plt Count 239 MPV 9.9 Immature Gran % (Auto) 0.4 Neut % (Auto) 69.6 Lymph % (Auto) 14.1 L [place] % (Auto) 12.1 H Eos % (Auto) 3.3 Baso % (Auto) 0.5 Lymph # (Auto) 2.15 [place] # (Auto) 1.9 H Eos # (Auto) 0.5 H Baso # (Auto) 0.1 Abs Immat Gran (auto) 0.06 H Absolute Neuts (auto) 10.6 H Absolute Nucleated RBC 0.000 Nucleated RBC % 0.0 Sodium 134 L Potassium 4.1 Chloride 103 Carbon Dioxide 25 Anion Gap 6 BUN 15 Creatinine 0.91 Estim Creat Clear Calc 74 Estimated GFR > 60 Glucose 102 POC Capillary Glucose 147 H 118 H Calcium 8.3 L C. difficile (PCR) 06/28/24 06:32 WBC RBC Hgb Hct MCV MCH MCHC RDW Plt Count MPV Immature Gran % (Auto) Neut % (Auto) Lymph % (Auto) [place] % (Auto) Eos % (Auto) Baso % (Auto) Lymph # (Auto) [place] # (Auto) Eos # (Auto) Baso # (Auto) Abs Immat Gran (auto) Absolute Neuts (auto) Absolute Nucleated RBC Nucleated RBC % Sodium Potassium Chloride Carbon Dioxide Anion Gap BUN Creatinine Estim Creat Clear Calc Estimated GFR Glucose POC Capillary Glucose Calcium C. difficile (PCR) Negative Quality VTE Prophylaxis VTE prophylaxis: mechanical ordered
[2024-06-28 08:08] LABS: Glucose Point of Care 124 mg/dl (65-105)
--- NOTE | 2024-06-28 08:11 | ECG_ITS ---
Test Date: 2024-06-28 09:08:41 Measurements Intervals [place] Rate: 82 P: 60 ID: [id number] QRS: 55 QRSD: 98 T: 19 QT: 367 QTc: 431 Interpretive Statements SINUS RHYTHM LEFT ATRIAL ENLARGEMENT POSSIBLE LEFT VENTRICULAR HYPERTROPHY PEAKED T WAVES- CONSIDER HYPERKALEMIA ABNORMAL ECG No previous ECG available for comparison Electronically Signed On 06-28-2024 12:16:10 CDT by Miguel Paulino D.O.
[2024-06-28] MEDS: allopurinoL 100 MG TABLET BY MOUTH (09:24)
[2024-06-28 10:08] LABS: Troponin I < 0.012 ng/mL (0.000-0.034)
[2024-06-28 12:15] LABS: Glucose Point of Care 123 mg/dl (65-105)
[2024-06-28] MEDS: FUROSEMIDE INJ 40 MG/4 ML VIAL IV PUSH (12:34)
--- NOTE | 2024-06-28 12:56 | PM.CNCAR ---
Assessment and Plan Assessment and plan (1) Mitral regurgitation: Code(s): I34.0 - Nonrheumatic mitral (valve) insufficiency Status: Acute Plan This is a 68-year-old man with symptoms of exertional dyspnea and for the last week symptoms of orthopnea and PND. No previous cardiac history. On examination it appears that he has mitral valve regurgitation. An echocardiogram for further evaluation of this has been already ordered by the hospital team. Obviously that will not be done until tomorrow morning as there is not a stenographer cotton cleaner on Saturday. We will review his echocardiogram and leave further recommendations. I did prepare the patient and his for the possibility that he might require a mitral valve procedure if significant MR is identified. Ramon Day MD [facility] History of Present Illness History of Present Illness Consult date/time: 06/28/24 12:56 Reason For Visit: chf Narrative: This is a 68-year-old man I am seeing at the request of the hospitalist because of shortness of breath and the feeling that he has developing symptoms of congestive heart failure. The patient is a gentleman who was been enjoying very good health his life his only known medical problem he says his gout. He has been at noticing exertional shortness of breath very gradually over the course of the last 6 months to a year with activity such as exercising jogging etc.. He noticed in the last week or so he is having shortness of breath with minimal activity and over the course of the last week has had a couple of episodes of PND and orthopnea where he will sit up at night because of shortness of breath. He is not experiencing any lower extremity edema. He does notice some occasional episodes of chest pain that occur at rest off and on but this is not an exertional symptom. He was transferred here from [place] yesterday for evaluation of these symptoms. His chest x-ray looks relatively clear to me. He has a unremarkable looking electrocardiogram and in this setting is being seen in consultation. He says he has a family history of coronary disease in his father which led him to request a stress test to be done about 2 years ago with which she indicates was normal. He was not experiencing any cardiac symptoms at that time. Review of Systems Constitutional: Constitutional: Reports no additional constitutional complaints Eyes: Eyes: Reports no additional eye complaints ENT: Reports system reviewed and no additional complaints, except as documented Cardiovascular: Cardiovascular: Reports as per HPI Respiratory: Respiratory: Reports dyspnea on exertion Gastrointestinal: Gastrointestinal: Reports no additional gastrointestinal complaints Musculoskeletal: Musculoskeletal: Reports no additional musculoskeletal complaints Integumentary/Breasts: Skin/Breast: Reports system reviewed and no additional complaints, except as docu Neurologic: Reports system reviewed and no additional complaints, except as documented Endocrine: Endocrine: Reports no additional endocrine complaints Hematologic/Lymphatic: Hematologic/Lymphatic: Reports no additional hematologic/lymphatic complaints Allergic/Immunologic: Allergic/Immunologic: Reports no additional allergic/immunologic complaints [facility] Past Medical History Medical History Gallbladder mass Chronic cholecystitis Abnormal findings on imaging of biliary tract Hepatitis C antibody test negative (08/09/15) Pancreatic cyst Villous adenoma of gallbladder Surgical History Surgical History Hx of cholecystectomy Family History Family History (Updated 06/27/24 @ 15:22 by Lacey Navas RN) Father Family history of cardiovascular disease, Onset Age: 72 Family history of malignant neoplasm Diabetes mellitus Mother Family history of Alzheimer's disease Family history of dementia Social History Social History Smoking status: Never smoker Alcohol intake: current Drinks per week: 14 Substance use: never Substance use type: does not use Do You Feel Safe in your Home?: Yes Lack of Transportation: No Lack of Food: Never True Current Housing: I Have Housing Concerned About Future Housing: No Difficulty Paying Gas/Electric Bills: No Difficulty Paying for Meds: No Currently Unemployed: No Education: High School Diploma/GED Difficulty w/ Childcare or Family Care: No Living arrangements: with family Occupation/Education: occupation Gender identity (if verbalized by the patient): Male Spiritual care concerns: No Agree to blood products: Yes Meds Home Medications and Allergies Home Medications ?Medication ?Instructions ?Recorded ?Confirmed ?Type sildenafil 100 mg tablet 100 mg PO DAILY PRN sexual 04/29/23 06/27/24 Rx activity #30 tabs testosterone cypionate 200 mg/mL 200 mg IM .14 days #6 mL 03/06/24 06/27/24 Rx intramuscular oil allopurinol 100 mg tablet See Rx Instructions .Route 05/13/24 06/27/24 Rx .COMPLEX #90 tabs Allergies Allergy/AdvReac Type Severity Reaction Status Date / Time No Known Allergies Allergy Verified 06/27/24 15:33 Vital Signs Vital Signs - 24 hr 06/27/24 15:35 06/27/24 16:00 06/27/24 18:01 Temperature 36.9 C 37.6 C Pulse Rate 90 90 Respiratory Rate 18 16 Blood Pressure 120/70 120/70 131/82 Pulse Oximetry 92 91 Oxygen Delivery 06/27/24 20:00 06/27/24 20:00 06/28/24 00:00 Temperature Pulse Rate 82 84 Respiratory Rate Blood Pressure Pulse Oximetry Oxygen Delivery Room Air 06/28/24 04:00 06/28/24 05:05 06/28/24 06:34 Temperature 37.9 C H 37.0 C Pulse Rate 79 86 Respiratory Rate 16 Blood Pressure 123/56 L Pulse Oximetry 91 Oxygen Delivery 06/28/24 08:00 06/28/24 08:00 06/28/24 08:00 Temperature Pulse Rate 87 Respiratory Rate Blood Pressure 123/56 L Pulse Oximetry Oxygen Delivery Room Air Exam Const: General: comfortable and no acute distress Other: Pleasant tall thin fit looking gentleman HENMT: Mouth: Yes moist mucous membranes Eyes: Sclera: sclerae normal Neck: Neck: supple and no JVD Resp: Effort & Inspection: normal respiratory effort Auscultation: clear to auscultation bilaterally Cardio: Rate: regular rate Rhythm: regular rhythm Other: Grade 2/6 holosystolic murmur audible at the left sternal border and at the apex. GI: GI Palp: Yes Soft to palpation Auscultation: normal bowel sounds Skin: General skin exam: normal color Neuro: Other: Alert and oriented x3 Extrem: Other: Normal perfusion, no edema Results Labs and Meds 06/28/24 05:32 06/28/24 05:32 Lab results: Cardiac Enzymes 06/28/24 Range/Units 09:39 Troponin I < 0.012 (0.000-0.034) ng/mL CBC 06/28/24 Range/Units 05:32 WBC 15.2 H (4.5-10.0) K/mm3 RBC 5.02 (4.6-6.20) M/mm3 Hgb 16.0 (14.0-18.0) g/dL Hct 47.4 (42.0-52.0) % Plt Count 239 (150-375) k/mm3 Lymph # (Auto) 2.15 (0.9-3.2) K/mm3 [place] # (Auto) 1.9 H (0.1-0.6) K/mm3 Eos # (Auto) 0.5 H (0-0.3) K/mm3 Baso # (Auto) 0.1 (0.0-0.1) K/mm3 Comprehensive Metabolic Panel 06/28/24 Range/Units 05:32 Sodium 134 L (137-145) mmol/L Potassium 4.1 (3.4-5.0) mmol/L Chloride 103 (98-107) mmol/L Carbon Dioxide 25 (22-30) mmol/L BUN 15 (9-20) mg/dL Creatinine 0.91 (0.7-1.3) mg/dL Glucose 102 (65-110) mg/dL Calcium 8.3 L (8.4-10.2) mg/dL Intake and Output 06/27/24 06/28/24 06/28/24 23:59 07:59 15:59 Intake Total 120 660 462 Output Total 225 Balance 120 435 462 Intake: IV 300 Azithromycin 500 mg/Ns 250 ml 250 500 mg In 250 ml @ 250 mls/hr IVPB Q24H [facility] Rx#:[id number] cefTRIAXone 1 GM/NS 50 ML 1 gm 50 In 50 ml @ 100 mls/hr IVPB Q24H [facility] Rx#:[id number] Oral 120 360 462 Output: Urine 225 Other: # Unmeasured Voids 1 2 Patient Weight 06/28/24 23:59 Weight 90.5 kg
[2024-06-28 13:02] LABS: Troponin I < 0.012 ng/mL (0.000-0.034)
[2024-06-28 16:04] LABS: Troponin I < 0.012 ng/mL (0.000-0.034)
[2024-06-28 17:21] LABS: Glucose Point of Care 112 mg/dl (65-105)
[2024-06-28 23:58] LABS: Glucose Point of Care 110 mg/dl (65-105)
[2024-06-29] VITALS (9 sets, daily range): BP systolic 122–125; BP diastolic 61–74; PULSE 69–88; RESP 16–20; TEMP 36.9–37.3; O2SAT 95–97
[2024-06-29 05:42] LABS: Hematocrit 49.1 % (42.0-52.0); Mean Corpuscular HGB Conc 32.6 g/dl (32-36); Mean Corpuscular Hemoglobin 31.9 pg (26-34); Mean Platelet Volume 10.1 fl (7.4-10.4); Platelet Count Result 241 k/mm3 (150-375); Red Blood Count 5.01 M/mm3 (4.6-6.20); Red Cell Distribution Width 13.4 % (11.5-14.5)
[2024-06-29 05:54] LABS: Alanine Aminotransferase 28 U/L (6-50); Albumin Level 3.7 g/dL (3.5-5.1); Alkaline Phosphatase 55 U/L (38-126); Anion Gap 10 mmol/L (4-12); Aspartate Amino Transferase 30 U/L (17-59); Bilirubin,Total 1.2 mg/dL (0.2-1.3); Blood Urea Nitrogen 22 mg/dL (9-20); Calcium 8.5 mg/dL (8.4-10.2); Carbon Dioxide 24 mmol/L (22-30); Chloride 101 mmol/L (98-107); Estimated CRCL calculation 69 ml/min; Estimated Glomerular Filt Rate > 60; Glucose 104 mg/dL (65-110); Potassium 4.5 mmol/L (3.4-5.0); Sodium 135 mmol/L (137-145)
[2024-06-29 06:24] LABS: Glucose Point of Care 101 mg/dl (65-105)
[2024-06-29] MEDS: allopurinoL 100 MG TABLET BY MOUTH (08:12)
--- NOTE | 2024-06-29 08:39 | PM.IMPN ---
Progress Note: A&P Assessment and Plan (1) Mitral regurgitation: Code(s): I34.0 - Nonrheumatic mitral (valve) insufficiency Status: Acute Assessment and Plan: Mitral regurgitation heard on assessment. Denies history of MR. Echo ordered to further assess severity LVEF 65-70% with grade II diastolic dysfunction, severe mitral valve regurgitation with flail leaflets and severe pulmonary hypertension Cardiology consulted Transfer [facility] for [facility] eval If not transferred by tomorrow will plan for R/C for surgery workup (2) Pulmonary edema: Code(s): J81.1 - Chronic pulmonary edema Status: Acute Assessment and Plan: Endorsing exertional dyspnea and orthopnea. Denies ROHINI. No personal cardiac history, but extensive family history. - BNP: 1227 - EKG sinus rhythm - IV lasix 40 mg x1, lungs clear on auscultation - Chest XR: 1. Mild reticular opacities at the bilateral lung bases which could represent atelectasis, mild pulmonary edema or pneumonia. 2. Blunting at the left cardiophrenic angle which could represent small left pleural effusion. - Chest CTA: 1. No pulmonary embolism. 2. Patchy bilateral ground glass opacities with distribution and presence of smooth septal line thickening at the bilateral lung bases favoring pulmonary edema over pneumonia. 3. Small bilateral pleural effusions. Likely pulmonary edema given that patient is afebrile, denies cough, sick contacts, and has clear lung sounds on exam - Echo: LVEF 65-70% with grade II diastolic dysfunction, severe mitral valve regurgitation with flail leaflets and severe pulmonary hypertension - Monitor vital signs, I&Os, BUN/creatinine, daily weights, neuro status and patient is a fall risk - Monitor serum electrolytes, Keep serum Potassium>4 and serum Magnesium>2 and CBC - Cardiology consulted (3) ETOH abuse: Code(s): F10.10 - Alcohol abuse, uncomplicated Status: Acute Assessment and Plan: Patient drinks 2 shots of liquor nightly. Denies history of withdrawal. CIWA negative and patient remains asymptomatic [place] (4) Chest pain: Qualifiers: Chest pain type: unspecified Qualified Code(s): R07.9 - Chest pain, unspecified Code(s): R07.9 - Chest pain, unspecified Status: Acute Assessment and Plan: Likely musculoskeletal as pain started after lifting weights with his son Troponin negative EKG unremarkable No longer endorsing chest pain Time Spent With Patient Time with patient: 25 - 35 minutes Subjective Date/time seen: 06/29/24 08:39 Interval history: 68 year old male with past medical history of hyperlipidemia and gout presents to the hospital for chest pain and shortness of breath. Patient is pleasant sitting up in his chair with at bedside. He has no complaints denying chest pain, shortness of breath, palpitations, nausea/vomiting and abdominal pain. Review of Systems Review of Systems: All systems reviewed & are unremarkable except as noted in HPI and below Exam Narrative: AF HR 82 RR 16 SPO2 95 BP 125/74 General: male in no acute respiratory distress who is nontoxic appearing, sitting up in chair HEENT: Normocephalic. Atraumatic. Extraocular movement intact. Sclera clear and anicteric.No facial asymmetry. Chest: Lungs are clear to auscultation bilaterally. No wheezes. CV: Heart was regular rate and rhythm. Severe MR. Abd: Abdomen was soft. Nontender. Nondistended. Positive bowel sounds. Ext: No clubbing, cyanosis, or edema. DP pulses bilaterally. Neuro: Patient is alert and oriented x4. Speech is clear. Objective Data Vital Signs Vital Signs: Vital Signs - 24 hr 06/28/24 12:00 06/28/24 12:00 06/28/24 14:00 Temperature 97.8 F Pulse Rate 85 88 Pulse Rate [Apical] Pulse Rate [Monitor] Respiratory Rate 18 Blood Pressure 123/56 L 128/58 L Pulse Oximetry 92 Oxygen Delivery 06/28/24 19:41 06/28/24 19:41 06/28/24 19:53 Temperature 97.7 F Pulse Rate 84 84 Pulse Rate [Apical] 84 Pulse Rate [Monitor] Respiratory Rate 18 18 Blood Pressure 116/98 H 116/98 H Pulse Oximetry 96 96 Oxygen Delivery Room Air 06/28/24 20:00 06/28/24 23:48 06/29/24 00:00 Temperature Pulse Rate 83 78 Pulse Rate [Apical] Pulse Rate [Monitor] 76 Respiratory Rate Blood Pressure Pulse Oximetry Oxygen Delivery 06/29/24 04:00 06/29/24 04:00 06/29/24 05:58 Temperature 99.1 F Pulse Rate 69 82 Pulse Rate [Apical] Pulse Rate [Monitor] 69 Respiratory Rate 16 Blood Pressure 125/74 Pulse Oximetry 95 Oxygen Delivery Intake/Output Intake/Output: Intake & Output 04/04/25 04/05/25 04/06/25 04/07/25 23:59 23:59 23:59 23:59 Intake Total 120 1212 360 Output Total 2125 Balance 120 -913 360 Meds/Results Medications: Active Medications Generic Name Dose Route Start Last Admin Trade Name [place] PRN Reason Stop Dose Admin Acetaminophen 650 mg 06/27/24 15:42 Acetaminophen 325 Mg Tablet PO Q4H PRN Mild Pain (1-3) or Fever Allopurinol 100 mg 06/28/24 09:00 06/29/24 08:12 Allopurinol 100 Mg Tablet BY MOUTH 100 mg DAILY [facility]IAMS Administration Lorazepam 2 mg 06/28/24 08:15 Lorazepam Inj (*Crx) 2 Mg/Ml Vial IV PUSH Q4H PRN CIWA 8-15 Perflutren Lipid Microsphere 0 ml 06/27/24 15:42 Perflutren Lipid Microspheres 1.5 Ml Vial Diluted To 10 Ml Total Volume IV PUSH 06/30/24 15:46 ONCE PRN adequate visualization Protocol Labs Labs: Laboratory Results - last 24 hr 06/28/24 06/28/24 06/28/24 09:39 11:41 12:36 WBC RBC Hgb Hct MCV MCH MCHC RDW Plt Count MPV Sodium Potassium Chloride Carbon Dioxide Anion Gap BUN Creatinine Estim Creat Clear Calc Estimated GFR Glucose POC Capillary Glucose 123 H Calcium Total Bilirubin AST ALT Alkaline Phosphatase Troponin I < 0.012 < 0.012 Total Protein Albumin 06/28/24 06/28/24 06/28/24 15:36 17:06 23:55 WBC RBC Hgb Hct MCV MCH MCHC RDW Plt Count MPV Sodium Potassium Chloride Carbon Dioxide Anion Gap BUN Creatinine Estim Creat Clear Calc Estimated GFR Glucose POC Capillary Glucose 112 H 110 H Calcium Total Bilirubin AST ALT Alkaline Phosphatase Troponin I < 0.012 Total Protein Albumin 06/29/24 06/29/24 05:11 05:51 WBC 14.0 H RBC 5.01 Hgb 16.0 Hct 49.1 MCV 98.0 MCH 31.9 MCHC 32.6 RDW 13.4 Plt Count 241 MPV 10.1 Sodium 135 L Potassium 4.5 Chloride 101 Carbon Dioxide 24 Anion Gap 10 BUN 22 H Creatinine 0.98 Estim Creat Clear Calc 69 Estimated GFR > 60 Glucose 104 POC Capillary Glucose 101 Calcium 8.5 Total Bilirubin 1.2 AST 30 ALT 28 Alkaline Phosphatase 55 Troponin I Total Protein 6.0 L Albumin 3.7 Quality VTE Prophylaxis VTE prophylaxis: mechanical ordered
--- NOTE | 2024-06-29 10:59 | P.PNCA_ITS ---
Progress Note: A&P Assessment and Plan (1) Mitral regurgitation: Code(s): I34.0 - Nonrheumatic mitral (valve) insufficiency Status: Acute Assessment and Plan: This is a new diagnosis. Severe MR with possible flail posterior leaflet * Clinically stable * Transfer to [facility] for CTS eval * If he has not transferred by tomorrow will plan for R/LHC here for surgery workup Subjective Date/time seen: 06/29/24 10:59 Interval history: Cardiology follow up for CHF He is feeling well today and does not have any complaints. He does not feel short of breath at rest but does have dyspnea with exertion. Review of Systems Constitutional: Constitutional: Reports no additional constitutional complaints Eyes: Eyes: Reports no additional eye complaints ENT: Reports system reviewed and no additional complaints, except as documented Cardiovascular: Cardiovascular: Reports as per HPI and Reports dyspnea on exertion Respiratory: Respiratory: Reports dyspnea on exertion Gastrointestinal: Gastrointestinal: Reports no additional gastrointestinal complaints Musculoskeletal: Musculoskeletal: Reports no additional musculoskeletal complaints Integumentary/Breasts: Skin/Breast: Reports system reviewed and no additional complaints, except as docu Neurologic: Reports system reviewed and no additional complaints, except as documented Endocrine: Endocrine: Reports no additional endocrine complaints Hematologic/Lymphatic: Hematologic/Lymphatic: Reports no additional hematologic/lymphatic complaints Allergic/Immunologic: Allergic/Immunologic: Reports no additional allergic/immunologic complaints Exam Const: General: comfortable and no acute distress Other: Pleasant tall thin fit looking gentleman HENMT: Mouth: Yes moist mucous membranes Eyes: Sclera: sclerae normal Neck: Neck: supple and no JVD Resp: Effort & Inspection: normal respiratory effort Auscultation: clear to auscultation bilaterally Cardio: Rate: regular rate Rhythm: regular rhythm Other: Grade 2/6 holosystolic murmur audible at the left sternal border and at the apex. GI: Auscultation: normal bowel sounds Skin: General skin exam: normal color Neuro: Other: Alert and oriented x3 Extrem: Other: Normal perfusion, no edema Objective Data Vital Signs Vital Signs: Vital Signs - 24 hr 06/28/24 12:00 06/28/24 12:00 06/28/24 14:00 Temperature 36.6 C Pulse Rate 85 88 Pulse Rate [Apical] Pulse Rate [Monitor] Respiratory Rate 18 Blood Pressure 123/56 L 128/58 L Pulse Oximetry 92 Oxygen Delivery 06/28/24 19:41 06/28/24 19:41 06/28/24 19:53 Temperature 36.5 C Pulse Rate 84 84 Pulse Rate [Apical] 84 Pulse Rate [Monitor] Respiratory Rate 18 18 Blood Pressure 116/98 H 116/98 H Pulse Oximetry 96 96 Oxygen Delivery Room Air 06/28/24 20:00 06/28/24 23:48 06/29/24 00:00 Temperature Pulse Rate 83 78 Pulse Rate [Apical] Pulse Rate [Monitor] 76 Respiratory Rate Blood Pressure Pulse Oximetry Oxygen Delivery 06/29/24 04:00 06/29/24 04:00 06/29/24 05:58 Temperature 37.3 C Pulse Rate 69 82 Pulse Rate [Apical] Pulse Rate [Monitor] 69 Respiratory Rate 16 Blood Pressure 125/74 Pulse Oximetry 95 Oxygen Delivery 06/29/24 08:00 06/29/24 08:15 Temperature Pulse Rate 85 Pulse Rate [Apical] Pulse Rate [Monitor] Respiratory Rate Blood Pressure Pulse Oximetry Oxygen Delivery Room Air Intake/Output Intake/Output: Intake & Output 06/26/24 06/27/24 06/28/24 06/29/24 23:59 23:59 23:59 23:59 Intake Total 120 1212 360 Output Total 2125 Balance 120 -913 360 Meds/Results Medications: Active Medications Generic Name Dose Route Start Last Admin Trade Name Freq PRN Reason Stop Dose Admin Acetaminophen 650 mg 06/27/24 15:42 Acetaminophen 325 Mg Tablet PO Q4H PRN Mild Pain (1-3) or Fever Allopurinol 100 mg 06/28/24 09:00 06/29/24 08:12 Allopurinol 100 Mg Tablet BY MOUTH 100 mg DAILY WILLIAMS Administration Lorazepam 2 mg 06/28/24 08:15 Lorazepam Inj (*Crx) 2 Mg/Ml Vial IV PUSH Q4H PRN CIWA 8-15 Perflutren Lipid Microsphere 0 ml 06/27/24 15:42 Perflutren Lipid Microspheres 1.5 Ml Vial Diluted To 10 Ml Total Volume IV PUSH 06/30/24 15:46 ONCE PRN adequate visualization Protocol Labs Labs: Laboratory Results - last 24 hr 06/28/24 06/28/24 06/28/24 11:41 12:36 15:36 WBC RBC Hgb Hct MCV MCH MCHC RDW Plt Count MPV Sodium Potassium Chloride Carbon Dioxide Anion Gap BUN Creatinine Estim Creat Clear Calc Estimated GFR Glucose POC Capillary Glucose 123 H Calcium Total Bilirubin AST ALT Alkaline Phosphatase Troponin I < 0.012 < 0.012 Total Protein Albumin 06/28/24 06/28/24 06/29/24 17:06 23:55 05:11 WBC 14.0 H RBC 5.01 Hgb 16.0 Hct 49.1 MCV 98.0 MCH 31.9 MCHC 32.6 RDW 13.4 Plt Count 241 MPV 10.1 Sodium 135 L Potassium 4.5 Chloride 101 Carbon Dioxide 24 Anion Gap 10 BUN 22 H Creatinine 0.98 Estim Creat Clear Calc 69 Estimated GFR > 60 Glucose 104 POC Capillary Glucose 112 H 110 H Calcium 8.5 Total Bilirubin 1.2 AST 30 ALT 28 Alkaline Phosphatase 55 Troponin I Total Protein 6.0 L Albumin 3.7 06/29/24 05:51 WBC RBC Hgb Hct MCV MCH MCHC RDW Plt Count MPV Sodium Potassium Chloride Carbon Dioxide Anion Gap BUN Creatinine Estim Creat Clear Calc Estimated GFR Glucose POC Capillary Glucose 101 Calcium Total Bilirubin AST ALT Alkaline Phosphatase Troponin I Total Protein Albumin Quality VTE Prophylaxis VTE prophylaxis: mechanical ordered
[2024-06-29 11:41] LABS: Glucose Point of Care 89 mg/dl (65-105)
--- NOTE | 2024-06-29 15:46 | ECHO_ITS ---
Patient Info Name: Kenton Gunn Age: 68 years : 1955 Gender: Male Ht: 72 in Wt: 187 lbs BSA: 2.08 m2 HR: 93 bpm BP: 125 / 74 mmHg Heart Rhythm: Sinus Rhythm Technical Quality: Good Exam Date: 06/29/2024 10:03 AM Exam Location: Echo Lab Patient Status: Inpatient Admit Date: 06/27/2024 Staff Ordering Physician: Delaney Frey APRN Special Librarian: Jenn Hayes RDCS Attending Provider: Dahlia Philippe PA-C Referring Physician: Shante MAX; Exam Type: CA echo doppler color flow Study Info Indications - New CHF Complete two-dimensional, color flow and Doppler transthoracic echocardiogram is performed. Summary 1. Complete two-dimensional, color flow and Doppler transthoracic echocardiogram is performed. 2. Left ventricular chamber dimension is normal. 3. Left ventricular systolic function is normal, estimated at 65-70%. 4. There is no increased left ventricular wall thickness. 5. The left ventricular diastolic function is grade II diastolic dysfunction. 6. Left atrial chamber dimension is mildly enlarged. 7. There is mild aortic valve stenosis with a peak velocity of 167 cm/s, mean gradient of 6 mmHg, and aortic valve area of 1.8 cm2. 8. There is mild to moderate aortic valve regurgitation. 9. There is severe mitral valve regurgitation. 10. The mitral valve has thickened leaflets. 11. Partially flail posterior mitral leaflet with severe anteriorly directed mitral regurgitation. 12. There is mild to moderate tricuspid valve regurgitation. 13. Severe pulmonary hypertension, estimated pulmonary arterial systolic pressure is 77 mmHg. 14. There is mild pulmonic regurgitation. Left Ventricle Left ventricular chamber dimension is normal. Left ventricular systolic function is normal, estimated at 65-70%. There is no increased left ventricular wall thickness. The left ventricular diastolic function is grade II diastolic dysfunction. Right Ventricle Right ventricular chamber dimension is normal. Right ventricular systolic function is normal. Left Atria Left atrial chamber dimension is mildly enlarged. Right Atria Right atrial chamber dimension is normal. Aortic Valve The aortic valve is probable trileaflet. There is mild aortic valve stenosis with a peak velocity of 167 cm/s, mean gradient of 6 mmHg, and aortic valve area of 1.8 cm2. There is mild to moderate aortic valve regurgitation. There is mild aortic valve calcification. Pulmonic Valve The pulmonic valve is normal. There is no pulmonic valve stenosis. There is mild pulmonic regurgitation. Mitral Valve The mitral valve has thickened leaflets. There is no mitral valve stenosis. There is severe mitral valve regurgitation. Partially flail posterior mitral leaflet with severe anteriorly directed mitral regurgitation. Tricuspid Valve The tricuspid valve leaflets are normal. There is no significant tricuspid valve stenosis. There is mild to moderate tricuspid valve regurgitation. Severe pulmonary hypertension, estimated pulmonary arterial systolic pressure is 77 mmHg. Pericardium/Pleural The pericardium appears normal. There is no pericardial effusion. Inferior Vena Cava Normal inferior vena cava with >50% collapse upon inspiration consistent with normal right atrial pressure, 10 mmHg. Aorta The aortic root size at the sinus of Valsalva is normal. Left Ventricular Outflow Tract Name Value Normal LVOT 2D LVOT Diameter 2.0 cm LVOT Doppler LVOT Peak Gradient 5 mmHg LVOT Mean Gradient 2 mmHg LVOT VTI 15 cm LVOT VTI/AV VTI Ratio 0.6 LVOT Stroke Volume 49 ml LVOT CO 14.2 l/min LVOT CI 6.8 l/min/m2 Mitral Valve Name Value Normal MV Doppler MV Peak Gradient 16 mmHg MV Mean Gradient 5 mmHg MV Decel Loíza 1,020 cm/s2 MV PHT 50 ms MV Area (PHT) 4.4 cm2 4.0-5.0 MV Area (Cont Eq VTI) 1.2 cm2 MV Diastolic Function MV E Peak Velocity 178 cm/s MV A Peak Velocity 61 cm/s MV E/A 2.9 MV Decel Time 174 ms MV Annular TDI MV E/e' (Septal) 14.0 <=8.0 MV E/e' (Lateral) 17.3 <=8.0 MV E/e' (Average) 15.7 Tricuspid Valve Name Value Normal TV Regurgitation Doppler TR Peak Velocity 408 cm/s TR Peak Gradient 67 mmHg Estimated PAP/RSVP RA Pressure 10 mmHg <=5 PA Systolic Pressure 77 mmHg <36 RV Systolic Pressure 77 mmHg <36 Aorta Name Value Normal Ascending Aorta Ao Root Diameter (MM) 3.4 cm Ao Root Diam Index (MM) 1.6 cm/m2 Aortic Valve Name Value Normal AV Doppler AV Peak Velocity 167 cm/s AV Peak Gradient 11 mmHg AV Mean Gradient 6 mmHg AV VTI 28 cm AV Area (Cont Eq VTI) 1.8 cm2 >=3.0 AV Area (Cont Eq Geraldo) 2.1 cm2 AV Regurgitation 2D LVOT Area 3.2 cm2 AV Regurgitation Doppler AR Decel Time 1,326 ms AR Decel Loíza 318 cm/s2 AR PHT 384 ms Ventricles Name Value Normal LV Dimensions 2D/MM IVS Diastolic Thickness (2D) 1.0 cm 0.6-1.0 LVID Diastole (2D) 5.2 cm 4.2-5.8 LVIW Diastolic Thickness (2D) 0.9 cm 0.6-1.0 LVID Systole (2D) 2.7 cm 2.5-4.0 LVOT Diameter 2.0 cm LV Mass (2D Cubed) 178.34 g 88.00-224.00 LV Mass Index (2D Cubed) 86 g/m2 49-115 Relative Wall Thickness (2D) 0.33 LV Fractional Shortening/Ejection Fraction 2D/MM LV Fractional Shortening (2D) 47 % 25-43 LV EF (2D Teicholz) 78 % 52-72 LV Diastolic Volume (4C MOD) 180 ml LV EF (4C MOD) 76 % LV Diastolic Volume (2C MOD) 183 ml LV EF (2C MOD) 76 % LV Diastolic Volume (BP MOD) 191 ml 62-150 LV Diastolic Volume Index (BP MOD) 92 ml/m2 34-74 LV Systolic Volume (BP MOD) 48 ml 21-61 LV Systolic Volume Index (BP MOD) 23 ml/m2 11-31 LV EF (BP MOD) 75 % 52-72 LV Diastolic Length (4C) 8.0 cm LV Systolic Length (4C) 5.8 cm LV Stroke Volume (4C MOD) 137 ml RV Dimensions 2D/MM RVID Diastole (2D) 4.3 cm 2.5-3.5 Atria Name Value Normal LA Dimensions LA Dimension (MM) 4.3 cm 3.0-4.1 LA Volume (4C A-L) 129 ml LA Volume (BP A-L) 111 ml RA Dimensions RA Area (4C) 18.1 cm2 <=18.0 Report Signatures
[2024-06-29 16:42] LABS: Glucose Point of Care 136 mg/dl (65-105)
--- NOTE | 2024-06-30 09:30 | PM.TDS ---
Transfer Discharge Sum: Prov Provider Date of admission: 06/29/24 14:02 Primary care physician: Nanette Cassidy DO Admitting clinician: Igor Rhodes MD Consults: 06/27/24 15:46 Consult to Physician Routine Comment: Consulting Provider: Ramon Day call center associate/MD group to consult: [facility] consulted at 1610 on 06/27/24. TIP SNT. Reason for consultation: New CHF Has provider been notified: Yes Attending physician on discharge: Igor Rhodes Discharging clinician: Dahlia Philippe Anticipated date of transfer: 06/29/24 Receiving physician/facility: Dr. Smith/[facility] DS: Admitting Diagnosis Discharge Date 06/29/24 Admitting Diagnosis Mitral regurgitation Pulmonary edema Etoh abuse Chest pain DS: Discharge Diagnosis Discharge Diagnosis (1) Mitral regurgitation: Code(s): I34.0 - Nonrheumatic mitral (valve) insufficiency Status: Acute (2) Pulmonary edema: Code(s): J81.1 - Chronic pulmonary edema Status: Acute (3) ETOH abuse: Code(s): F10.10 - Alcohol abuse, uncomplicated Status: Acute (4) Chest pain: Qualifiers: Chest pain type: unspecified Qualified Code(s): R07.9 - Chest pain, unspecified Code(s): R07.9 - Chest pain, unspecified Status: Acute Transfer Discharge Sum: Med Medications Active and Home Medications: Home Medications sildenafil 100 mg tablet 100 mg PO DAILY PRN sexual activity #30 tabs 04/29/23 [Rx Confirmed 06/27/24] testosterone cypionate 200 mg/mL intramuscular oil 200 mg IM .14 days #6 mL 03/06/24 [Rx Confirmed 06/27/24] allopurinol 100 mg tablet See Rx Instructions .Route .COMPLEX #90 tabs 05/13/24 [Rx Confirmed 06/27/24] Transfer Discharge Sum: Hosp Hospital Course Hospital course: Kenton Gunn is a 68 year old male with past medical history of hyperlipidemia and gout presents to the hospital for chest pain and shortness of breath and chest pain. Chest pain likely musculoskeletal as pain started after lifting weights with his son. Patient denied recurrence throughout admission. Troponin negative. EKG unremarkable. Patient was endorsing exertional dyspnea and orthopnea. Denied lower extremity edema. No personal cardiac history, but extensive family history. BNP slightly elevated and chest xr showed mild reticular opacities at the bilateral lung bases which could represent atelectasis, mild pulmonary edema or pneumonia and blunting at the left cardiophrenic angle which could represent small left pleural effusion. Chest CTA showed no PE, patchy bilateral ground glass opacities with distribution and presence of smooth septal line thickening at the bilateral lung bases favoring pulmonary edema over pneumonia, and small bilateral pleural effusions. Likely pulmonary edema given that patient is afebrile, denies cough, sick contacts, and has clear lung sounds on exam. Given lasix x1. Echo obtained and showed LVEF 65-70% with grade II diastolic dysfunction, severe mitral valve regurgitation with flail leaflets and severe pulmonary hypertension. Cardiology consulted and initiated transfer to tertiary facility for CTS services. Patient transferred to [facility] in a stable condition. Time Spent with Patient Time attestation: Total time spent providing and/or coordinating transfer services: Total time spent: Greater than 30 minutes Exam Narrative: AF HR 82 RR 16 SPO2 95 BP 125/74 General: male in no acute respiratory distress who is nontoxic appearing, sitting up in chair HEENT: Normocephalic. Atraumatic. Extraocular movement intact. Sclera clear and anicteric.No facial asymmetry. Chest: Lungs are clear to auscultation bilaterally. No wheezes. CV: Heart was regular rate and rhythm. Severe MR. Abd: Abdomen was soft. Nontender. Nondistended. Positive bowel sounds. Ext: No clubbing, cyanosis, or edema. DP pulses bilaterally. Neuro: Patient is alert and oriented x4. Speech is clear. DS: Data Data Completed and Pending Completed studies during hospitalization: Chest CTA Chest XR Labs on day of discharge: Labs from last 24 hours 06/29/24 06/29/24 16:26 11:38 POC Capillary Glucose 136 H 89
== END 2024-06-29 21:14 | disposition short-term general hospital (02) | DRG 306 ==
PROVIDERS: Nurse Practitioner Gerontology; Admitting Provider Internal Medicine; PCP Family Medicine; Visit Provider Student in an Organized Health Care Education/Training Program
DX: I34.0 Nonrheumatic mitral (valve) insufficiency (principal); I50.31 Acute diastolic (congestive) heart failure; J18.9 Pneumonia, unspecified organism; F41.9 Anxiety disorder, unspecified; E78.5 Hyperlipidemia, unspecified; R73.03 Prediabetes; Z20.822 Contact with and (suspected) exposure to COVID-19; R09.02 Hypoxemia; D72.829 Elevated white blood cell count, unspecified; F10.10 Alcohol abuse, uncomplicated; M10.9 Gout, unspecified; R07.89 Other chest pain; Z90.49 Acquired absence of other specified parts of digestive tract
CPT/HCPCS: 36415; 80048; 80053; 82948; 84484; 85025; 85027; 87493; 93005; 93306; 96365; 96367; 96375; A9270; G0378; G0379; J0456; J0696; J1938

== ENCOUNTER 2024-12-15 01:50 | Day surgery (SDC) | payer BC, MEDICARE, SELFPAY ==
[2024-11-30 13:17] VITALS: BMI 25.1
--- OUTSIDE RECORDS SUMMARY | 2024-12-15 01:53 | XMS_ITS | Clinical Summary ---
Author Organization [facility] Address [address] [place] [id number] Care Team Providers Care Board Of Education Secretary Name Role Phone Yosi Gatica MD Unavailable [phone] Ramon Day MD Unavailable [phone] Lennie Alaniz NP Primary Care Provider [phone] Allergies No known active allergies Medications testosterone cypionate (DEPO-TESTOTERO NE) 200 mg/mL injection Inject 1 mL (200 mg total) into the muscle as instructed every 14 (fourteen) days 5 Active allopurinoL (ZYLOPRIM) 100 mg tablet Take 1 tablet (100 mg total) by mouth daily 5 Active amiodarone (PACERONE) 200 mg tabletIndicatio ns:Prevention of A. Fib Post Cardio-Thoracic Surgery Take 2 tablets (400 mg total) by mouth 3 (three) times a day for 5 days, THEN 2 tablets (400 mg total) daily. 90 tablet 5 Active Additional Information Patient not taking.Reported on 09/09/2024 aspirin 81 mg enteric coated tablet Take 1 tablet (81 mg total) by mouth daily 30 tablet 5 Active Additional Information Patient not taking.Reported on 09/09/2024 furosemide (LASIX) 40 mg tablet Take 1 tablet (40 mg total) by mouth daily for 14 days 14 tablet 5 Active Additional Information Patient not taking.Reported on 09/09/2024 metoprolol tartrate (LOPRESSOR) 25 mg immediate release tablet Take 0.5 tablets (12.5 mg total) by mouth 2 (two) times a day 30 tablet 5 Active Additional Information Patient not taking.Reported on 09/09/2024 potassium chloride ER (KLOR-CON) 20 mEq CR tablet Take 1 tablet (20 mEq total) by mouth daily for 14 days With Lasix 14 tablet Active Additional Information Patient not taking.Reported on 09/09/2024 senna-docusate (PERICOLACE) 8.6-50 mg Take 1 tablet by mouth daily for 7 days 7 tablet 5 Active Additional Information Patient not taking.Reported on 09/09/2024 oxyCODONE (ROXICODONE) 5 mg immediate release tabletIndicatio ns:Pain Take 1 tablet (5 mg total) by mouth every 4 (four) hours as needed for pain 21 tablet Active Additional Information Patient not taking.Reported on 09/09/2024 Active Problems Problem Noted Date Diagnosed Date Preop cardiovascular exam 06/30/2024 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 2024 Nonrheumatic mitral valve regurgitation 06/30/19 25 Encounters Date Type Department Care Team Description 12/14/2024 Telephone [facility] Cardiology [address] [place] [address] [address] [place] [id number] Ramon Day MD 12/10/2024 Telephone [facility] Cardiology [address] [place] [phone] Ramon Day MD cardiac clearance from Last 3 Months Surgical History Surgery Date Site/Laterality Comments ABDOMINAL SURGERY CARDIAC CATHETERIZATION 07/01/2024 N/A Procedure: Right Left Heart Catheterization with Coronary Angiography with or without Left Ventriculography [id number]; Surgeon: Asher Mera MD; Location: CARDIAC GENERAL OFFICE WORKER; Service: Cardiovascular; Laterality: N/A; Medical devices from this surgery are in the Medical Devices section. Social History Tobacco Use Types Packs/Day Years Used Date Smoking Tobacco: Never Smokeless Tobacco: Never Tobacco Cessation:Counseling Given: Not Answered [facility] Utilities Answer Date Recorded In the past 12 months has th e electric, gas, oil, or water company threatened to shut off services in your home? No 06/30/2024 Social Connection and Isolation Panel Answer Date Recorded In a typical week, how many times do you talk on the phone with family, friends, or neighbors? More than three times a week 06/30/2024 How often do you get togethe r with friends or relatives? More than three times a week 06/30/2024 How often do you attend chur ch or zoroastrianism services? Never 06/30/2024 Do you belong to any clubs o r organizations such as episcopal groups, unions, fraternal or athletic groups, or school groups? No 06/30/2024 How often do you attend meet ings of the clubs or organizations you belong to? Never 06/30/2024 Are you , , di vorced, , never , or living with a partner? 06/30/2024 AUDIT-C Answer Date Recorded Q1: How often do you have a drink containing alcohol? 4 or more times a week 06/29/2024 Q2: How many drinks containi ng alcohol do you have on a typical day when you are drinking? 1 or 2 Q3: How often do you have si x or more drinks on one occasion? Less than monthly 06/29/2024 Overall Financial Resource Strain (CARDIA) Answe r Date Recorded How hard is it for you to pa y for the very basics like food, housing, medical care, and heating? Not hard at all 06/30/2024 Hunger Vital Sign Answer Date Recorded Within the past 12 months, y ou worried that your food would run out before you got the money to buy more. Never true 07/01/19 25 Within the past 12 months, t he food you bought just didn't last and you didn't have money to get more. Never true 06/30/2024 PRAPARE - Transportation Answer Date Re corded In the past 12 months, has l ack of transportation kept you from medical appointments or from getting medications? No 10/2024 In the past 12 months, has l ack of transportation kept you from meetings, work, or from getting things needed for daily living? No 06/30/2024 Housing Stability Vital Sign Answer Chan e Recorded In the last 12 months, was t here a time when you were not able to pay the mortgage or rent on time? No 06/30/2024 In the past 12 months, how m any times have you moved where you were living? 0 06/30/2024 At any time in the past 12 m [facility], were you homeless or living in a residential (including now)? No 06/30/2024 Personal Safety Answer Date Recorded Have you ever been in or are you currently in a harmful physical or emotional relationship or is someone making you feel afraid or unsafe? 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 Gender Identity Not on file Sexual Orientation Not on file Obstetrics History Last Filed Vital Signs Vital Sign Reading Time Taken Comments Blood Pressure 120/62 09/09/2024 8:51 AM CDT Pulse 82 09/09/2024 8:51 AM CDT Temperature 36.9 C (98.4 F) 07/07/2024 3:37 PM CDT Respiratory Rate 16 08/06/2024 10:49 AM CDT Oxygen Saturation 97% 09/09/2024 8:51 AM CDT Inhaled Oxygen Concentration - - Weight 84.8 kg (187 lb) 09/09/2024 8:51 AM CDT Height 182.9 cm (6') 09/09/2024 8:51 AM CDT Body Mass Index 25.36 09/09/2024 8:51 AM CDT Plan of Treatment Health Maintenance Due Date Last Done Comments Colon Cancer Screening-Colonoscopy 1955 Depression Screening 1955 Hepatitis C Screening 1955 DTaP/Tdap/Td Vaccine (1 - Tdap) 1965 Hepatitis B Screening 1972 Well Visit 65+ 09/04/2019 Covid-19 Vaccine (3 - 2024-2 6 season) 2024 07/01/2020, 06/03/2020 Influenza Vaccine (#1) 2024 , 01/18/2022, 01/05/2021, Additional history exists Fall Risk Assessment 07/07/2025 07/07/2024 Pneumococcal vaccine 65+ Completed 05/25/2021, 03/26 Zoster Vaccine Completed 01/03/2022, 10/26/2021 Medical Devices Implanted Type Area Anglesmith Helper Device Identifier Shelf Expiration Date Model / Serial / Lot [employer] Device Closure Vascade Od5 Fr Femoral Artery [id number] - [id number] - [id number] Implanted:Qty: 1 on 07/01/2024 by Asher Mera MD at [facility] Vascular Closure Device [employer] 12/30/2025 [id number] / [id number] / [id number] [employer] Ring Annuloplasty Mitral Double Saddle Shape Physio 32mm [place] Chromium Silicone Polyester [id number] - [id number] - [id number] Implanted:Qty: 1 on 07/02/2024 by Yosi Gatica MD at [facility] N/A: Heart [employer] [id number] 10/07/2028 [id number] / [id number] / Insurance MEDICARE [facility] MEDICARE [employer] [facility] Advance Directives For more information, please contact: [phone] Documents on File Type Date Recorded Patient Instructor Military Science Expl anation ADVANCE DIRECTIVE 07/08/2024 12:18 PM МАРИНА R OF FUNERAL HOME DIRECTOR-MEDICAL ADVANCE DIRECTIVE 07/08/2024 12:18 PM MOON NG WILL Advance Directives and Living Will 06/30/2024 2:45 PM * Full Code (Latest Code Status on File) Date Activated Date Inactivated Comments 06/30/2024 8:50 AM 07/07/2024 9:09 PM Healthcare Agents on File Name Relationship Healthcare Agent Relationshi p Communication Emely Ohm Spouse Health Care Agent Esther Barnhart Sister First Alternate Health C are Agent Parvez Barnhart Nephew Second Alternate Health Care Agent Care Teams Board Of Education Secretary Relationship Specialty Start Date End Date Lennie Alnaiz NP [address] [place], [place] [id number] PCP - General Internal Medicine 09/09/24 Yosi Gatica MD Surgeon Cardiothoracic Surgery 07/07/24 Ramon Day MD [address] [facility] [address] [place] [address] Consulting Physician Cardiology 07/07/24
--- OUTSIDE RECORDS SUMMARY | 2024-12-15 01:53 | XMS_ITS | Encounter Summary ---
Author Organization [facility] Healthcare Address [address] [place] [address] Care Team Providers Care Floor Winder Name Role Phone Yosi Gatica MD Unavailable [phone] Ramon Day MD Unavailable [phone] Lennie Alaniz NP Primary Care Provider [phone] Encounter Details Date Type Department Care Team (Late st Contact Info) Description 07/08/2024 [facility] Post Discharge Follow up phone call [facility] [address] [place] [address] Pooja Burkett Social History Tobacco Use Types Packs/Day Years Used Date Smoking Tobacco: Never Smokeless Tobacco: Never [facility] Utilities Answer Date Recorded In the past 12 months has [employer] electric, gas, oil, or water company threatened [...] often do you attend chur ch or anabaptism services? Never 06/30/2024 Do you belong to any clubs o r organizations such as anabaptist groups, unions, fraternal or athletic groups, or [...] any time in the past 12 m [facility], were you homeless or living in a custodial (including now)? No 06/30/2024 Personal Safety Answer Date Recorded Have you ever been in or are you currently in a harmful physical or emotional relationship or is someone making you feel afraid or unsafe? 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 Gender Identity Not on file Sexual Orientation Not on file documented as of this encounter Plan of Treatment Not on file documented as of this encounter Visit Diagnoses Not on filedocumented in this encounter Care Teams Floor Winder Relationship Specialty Start Date End Date Lennie Alaniz NP [address] [facility] [address] [place] [address] PCP - General Internal Medicine 09/09/24 Yosi Gatica MD Surgeon Cardiothoracic Surgery 07/07/24 Ramon Day MD [address] [facility] [address] [place] [address] Consulting Physician Cardiology 07/07/24 documented as of this encounter
--- OUTSIDE RECORDS SUMMARY | 2024-12-15 01:53 | XMS_ITS | Encounter Summary ---
Author Organization [facility] Healthcare Address [address] [place] [address] Care Team Providers Care Toy Packer Name Role Phone Yosi Gatica MD Unavailable [phone] Ramon Day MD Unavailable [phone] Lennie Alaniz NP Primary Care Provider Encounter Details Date Type Department Care Team (Late st Contact Info) Description 12/14/2024 Telephone [facility] Medical Group Cardiology [address] [facility] [address] [place] [address] Ramon Day MD [address] [place] [address] Social History Tobacco Use Types Packs/Day Years Used Date Smoking Tobacco: Never Smokeless Tobacco: Never [facility] Utilities Answer Date Recorded In the past 12 months has [employer], gas, oil, or water [employer] threatened to shut off services in your [...] week 06/30/2024 How often do you attend [facility] or baptism services? Never 06/30/2024 Do you belong to any clubs o r organizations such as baptism groups, unions, fraternal or athletic groups, or [...] any time in the past 12 m [facility], were you homeless or living in a long term (including now)? No 06/30/2024 Personal Safety Answer Date Recorded Have you ever been in or are you currently in a harmful physical or emotional relationship or is someone making you feel afraid or unsafe? 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 She stated several phone calls were made to us and he is scheduled for a procedure with them tomorrow and they don't want him to prep for it if he isn't going to be able to get it done. Chanelle Powell, DYLAN will ask Dr. Day if he would be willing to sign off on it since he has seen the patient in consultation and Carmelita Perez is not available to sign off on the the Cardiac Clearance. Ana at would like a call back megan with a yes or no on the clearance her extension is [phone]. documented in this encounter Plan of Treatment Not on file documented as of this encounter Visit Diagnoses Not on filedocumented in this encounter Care Teams Toy Packer Relationship Specialty Start Date End Date Lennie Alaniz NP [facility] [place] [address] PCP - General Internal Medicine 09/09/24 Yosi Gatica MD Surgeon Cardiothoracic Surgery 07/07/24 Ramon Day MD [address] [facility] [address] [facility] [address] [place] [address] Consulting Physician Cardiology 07/07/24 documented as of this encounter
--- OUTSIDE RECORDS SUMMARY | 2024-12-15 01:53 | XMS_ITS | Encounter Summary ---
Author Organization [facility] Healthcare Address [address] [place] [address] Care Team Providers Care It Data Architect Name Role Phone Yosi Gatica MD Unavailable [phone] Ramon Day MD Unavailable [phone] Lennie Alaniz NP Primary Care Provider [phone] Encounter Details Date Type Department Care Team (Late st Contact Info) Description 07/08/2024 [facility] Post Discharge Follow up phone call [facility] [address] [place] [address] Pooja Burkett Social History Tobacco Use Types Packs/Day Years Used Date Smoking Tobacco: Never Smokeless Tobacco: Never [facility] Utilities Answer Date Recorded In the past 12 months has [employer] electric, gas, oil, or water company threatened [...] often do you attend chur ch or yazdanism services? Never 06/30/2024 Do you belong to any clubs o r organizations such as mandaen groups, unions, fraternal or athletic groups, or [...] any time in the past 12 m [facility], were you homeless or living in a custodial (including now)? No 06/30/2024 Personal Safety Answer Date Recorded Have you ever been in or are you currently in a harmful physical or emotional relationship or is someone making you feel afraid or unsafe? 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 Gender Identity Not on file Sexual Orientation Not on file documented as of this encounter Plan of Treatment Not on file documented as of this encounter Visit Diagnoses Not on filedocumented in this encounter Care Teams It Data Architect Relationship Specialty Start Date End Date Lennie Alaniz NP [address] [facility] [address] [place] [address] PCP - General Internal Medicine 09/09/24 Yosi Gatica MD Surgeon Cardiothoracic Surgery 07/07/24 Ramon Day MD [address] [facility] [address] [place] [address] Consulting Physician Cardiology 07/07/24 documented as of this encounter
--- OUTSIDE RECORDS SUMMARY | 2024-12-15 01:53 | XMS_ITS | Encounter Summary ---
Author Organization [facility] Healthcare Address [address] [place] [address] Care Team Providers Care Batch And Furnace Operator Name Role Phone Yosi Gatica MD Unavailable [phone] Ramon Day MD Unavailable [phone] Lennie Alaniz NP Primary Care Provider [phone] Reason for Visit * Reason Onset Date Comments cardiac clearance 12/10/2024 Encounter Details Date Type Department Care Team (Late st Contact Info) Description 12/10/2024 Telephone [facility] Medical Group Cardiology [address] [facility] [address] [facility] [address] [place] [address] Ramon Day MD [address] [place] [address] cardiac clearance Social History Tobacco Use Types Packs/Day Years Used Date Smoking Tobacco: Never Smokeless Tobacco: Never [facility] Utilities Answer Date Recorded In the past 12 months has [employer] electric, gas, oil, or water company threatened [...] week 06/30/2024 How often do you attend [facility] or taoist services? Never 06/30/2024 Do you belong to any clubs o r organizations such as yazidism groups, unions, fraternal or athletic groups, or [...] any time in the past 12 m [facility], were you homeless or living in a mcc (including now)? No 06/30/2024 Personal Safety Answer Date Recorded Have you ever been in or are you currently in a harmful physical or emotional relationship or is someone making you feel afraid or unsafe? 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 * Telephone Encounter - Meg Medina - 12/14/2024 11:30 AM CDT Kristel from [facility] calling to get an update on the clearance. Please advise. Thank you. Contact [phone] * Telephone Encounter - Chanelle Powell RN - 12/10/2024 1:06 PM CDT LM on with Aria at [facility], advised that we do have cardiac clearance request and will have CK address on Saturday. * Telephone Encounter - Vero Ochoa - 12/10/2024 12:57 PM CDT Aria from [facility] states she faxed a cardiac clearance request on 12/01 to RN fax. Requesting an update. Contact: documented in this encounter Plan of Treatment Not on file documented as of this encounter Visit Diagnoses Not on filedocumented in this encounter Care Teams Batch And Furnace Operator Relationship Specialty Start Date End Date Lennie Alaniz NP [address] [facility] [place] [address] PCP - General Internal Medicine 09/09/24 Yosi Gatica MD Surgeon Cardiothoracic Surgery 07/07/24 Ramon Day MD [address] [place] [address] Consulting Physician Cardiology 07/07/24 documented as of this encounter
--- OUTSIDE RECORDS SUMMARY | 2024-12-15 01:53 | XMS_ITS | Encounter Summary ---
Author Organization [facility] Healthcare Address [address] [place] [address] Care Team Providers Care Content Checker Name Role Phone Yosi Gatica MD Unavailable [phone] Ramon Day MD Unavailable [phone] Lennie Alaniz NP Primary Care Provider [phone] Encounter Details Date Type Department Care Team (Late st Contact Info) Description 07/08/2024 [facility] Post Discharge Follow up phone call [facility] [address] [place] [address] Pooja Burkett Social History Tobacco Use Types Packs/Day Years Used Date Smoking Tobacco: Never Smokeless Tobacco: Never [facility] Utilities Answer Date Recorded In the past 12 months has [employer] electric, gas, oil, or water company threatened [...] often do you attend chur ch or moravian services? Never 06/30/2024 Do you belong to any clubs o r organizations such as baptist groups, unions, fraternal or athletic groups, or [...] any time in the past 12 m [facility], were you homeless or living in a nursing home (including now)? No 06/30/2024 Personal Safety Answer Date Recorded Have you ever been in or are you currently in a harmful physical or emotional relationship or is someone making you feel afraid or unsafe? 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 Gender Identity Not on file Sexual Orientation Not on file documented as of this encounter Plan of Treatment Not on file documented as of this encounter Visit Diagnoses Not on filedocumented in this encounter Care Teams Content Checker Relationship Specialty Start Date End Date Lennie Alaniz NP [address] [facility] [address] [place] [address] PCP - General Internal Medicine 09/09/24 Yosi Gatica MD Surgeon Cardiothoracic Surgery 07/07/24 Ramon Day MD [address] [facility] [address] [place] [address] Consulting Physician Cardiology 07/07/24 documented as of this encounter
[2024-12-15 06:51] VITALS: BP 133/86; PULSE 95; RESP 19; TEMP 36.5; O2SAT 98
[2024-12-15] MEDS: LACTATED RINGERS 1,000 ML 150 ML IV CONT (07:06)
--- NOTE | 2024-12-15 07:34 | P.PNAN_ITS ---
Anes - Initial Pre Proc Eval Procedure: Operation Date: 12/15/24 08:00 Proposed Procedures p Screening Colonoscopy - Morales Moffett MD Date/Time: 12/15/24 07:34 Surgeon: Morales Moffett MD Pre Op Diagnosis: Personal history of colon polyps, unspecified Patient Data Age: 69 Gender: M Height: 1.83 m Weight: 81.5 kg Last Vital Signs Temp 97.7 F 12/15/24 06:51 Pulse 95 12/15/24 06:51 Resp 19 12/15/24 06:51 BP 133/86 12/15/24 06:51 Pulse Ox 98 12/15/24 06:51 O2 Del Method Room Air 12/15/24 06:51 Allergies Allergy/AdvReac Type Severity Reaction Status Date / Time No Known Allergies Allergy Verified 12/15/24 06:50 Home Medications ?Medication ?Instructions ?Recorded ?Confirmed ?Type testosterone cypionate 200 mg/mL 200 mg IM .14 days #6 mL 09/14/24 12/15/24 Rx intramuscular oil allopurinol 100 mg tablet See Rx Instructions .Route 0 11/12/24 12/15/24 Rx .COMPLEX #90 tabs sildenafil 100 mg tablet 100 mg PO DAILY PRN sexual 0 11/12/24 12/11/24 Rx activity #30 tabs Patient hx anesthesia problems: none Family hx anesthesia problems: none Results Review: All pre-operative results and documents have been reviewed as part of the pre- operative evaluation. [facility] Past Medical History Medical History Gallbladder mass Chronic cholecystitis Abnormal findings on imaging of biliary tract Hepatitis C antibody test negative (08/09/15) Pancreatic cyst Villous adenoma of gallbladder Surgical History Surgical History History of mitral valve repair June 2024 Hx of cholecystectomy Family History Family History Father Family history of cardiovascular disease, Onset Age: 72 Family history of malignant neoplasm Diabetes mellitus Mother Family history of Alzheimer's disease Family history of dementia Social History Social History Smoking status: Never smoker Alcohol intake: current Drinks per week: 14 Substance use: never Substance use type: does not use Do You Feel Safe in your Home?: Yes Lack of Transportation: No Lack of Food: Never True Current Housing: I Have Housing Concerned About Future Housing: No Difficulty Paying Gas/Electric Bills: No Difficulty Paying for Meds: No Currently Unemployed: No Education: High School Diploma/GED Difficulty w/ Childcare or Family Care: No Living arrangements: with family Occupation/Education: occupation Gender identity (if verbalized by the patient): Male Spiritual care concerns: No Agree to blood products: Yes Anes - Eval Final PreProcedure Day of Procedure 12/15/24 07:34 Patient weight: normal Lungs: normal air movement Airway: Mallampati scale class II Neurological: alert and oriented Last oral intake: >/= 8 hours ASA classification: II Emergent: no Anesthetic plan: proceed Anesthesia type and monitoring: general GIVS and standard monitoring Results Review: All pre-operative results and documents have been reviewed as part of the pre- operative evaluation. s/p MVR 2024, mild noted too. [place], no cp or sob. Informed Consent: The patient's anesthetic plan and its attendant risks and benefits were discussed with the patient/family/POA. Questions were solicited and answers provided to the satisfaction of the patient/family/POA.
--- NOTE | 2024-12-15 08:00 | P.HP_ITS ---
History of Present Illness History of Present Illness Consent: Risks, benefits, and alternatives have been discussed and questions answered. Patient agrees to proceed with procedure. Chief complaint: Personal history of colon polyps, unspecified Narrative: Kenton Gunn is a 69 year old male with colon polyp 3 years ago Review of Systems Review of Systems: All systems reviewed & are unremarkable except as noted in HPI and below PMFSH Past Medical History Medical History (Updated 12/15/24 @ 08:01 by Morales Moffett MD) Polyp of colon Gallbladder mass Chronic cholecystitis Abnormal findings on imaging of biliary tract Hepatitis C antibody test negative (08/09/15) Pancreatic cyst Villous adenoma of gallbladder Surgical History Surgical History History of mitral valve repair June 2024 Hx of cholecystectomy Family History Family History Father Family history of cardiovascular disease, Onset Age: 72 Family history of malignant neoplasm Diabetes mellitus Mother Family history of Alzheimer's disease Family history of dementia Social History Social History Smoking status: Never smoker Alcohol intake: current Drinks per week: 14 Substance use: never Substance use type: does not use Do You Feel Safe in your Home?: Yes Lack of Transportation: No Lack of Food: Never True Current Housing: I Have Housing Concerned About Future Housing: No Difficulty Paying Gas/Electric Bills: No Difficulty Paying for Meds: No Currently Unemployed: No Education: High School Diploma/GED Difficulty w/ Childcare or Family Care: No Living arrangements: with family Occupation/Education: occupation Gender identity (if verbalized by the patient): Male Spiritual care concerns: No Agree to blood products: Yes Meds Home Medications and Allergies Home Medications ?Medication ?Instructions ?Recorded ?Confirmed ?Type testosterone cypionate 200 mg/mL 200 mg IM .14 days #6 mL 09/14/24 12/15/24 Rx intramuscular oil allopurinol 100 mg tablet See Rx Instructions .Route 0 11/12/24 12/15/24 Rx .COMPLEX #90 tabs sildenafil 100 mg tablet 100 mg PO DAILY PRN sexual 0 11/12/24 12/11/24 Rx activity #30 tabs Allergies Allergy/AdvReac Type Severity Reaction Status Date / Time No Known Allergies Allergy Verified 12/15/24 06:50 Vital Signs Vital Signs - 24 hr 12/15/24 06:51 Temperature 97.7 F Pulse Rate 95 Respiratory Rate 19 Blood Pressure 133/86 Pulse Oximetry 98 Oxygen Delivery Room Air Exam Const: General: comfortable and no acute distress HENMT: Face/Nose/Sinus: Normal nares present Eyes: General: appearance normal, both eyes and all related structures Neck: Neck: no JVD Resp: Auscultation: clear to auscultation bilaterally Cardio: Rate: regular rate Rhythm: regular rhythm GI: Inspection: non-distended GI Palp: Yes Soft to palpation Skin: General skin exam: normal color Neuro: General: gait normal Speech: normal speech Extrem: General: normal to inspection Psych: Mental Status: mental status grossly normal Assessment and Plan Assessment and plan (1) Polyp of colon: Code(s): K63.5 - Polyp of colon Status: Acute Assessment and Plan: colonoscopy
--- NOTE | 2024-12-15 08:19 | S_PTH ---
PATIENT: Kenton Gunn LOC: [facility]#:[id number] AGE/SX: 69/M ROOM: RE12/15/[address]: Morales Moffett MD : 1955 BED: DIS: 12/15/2024 SPEC #: [id number] RECD: 12/15/24 08:59 STATUS: WERNER RELois #: [id number] BRIANNA: 12/15/24 08:[address]: Morales Moffett DEPT: [facility] Surgical RECD BY: Jimmy Mcelroy ENTERED: 12/15/24 09:00 SP TYPE: Surgical OTHR DR: Nanette Cassidy DO Tissues: A - Colon Polypectomy B - Colon Polypectomy Procedures: Hematoxylin and Eosin Stain Gross and Microscopic Level 4
[2024-12-15 08:21] VITALS: BP 107/64; PULSE 81; RESP 22; O2SAT 98
[2024-12-15 08:31] VITALS: BP 112/72; PULSE 81; RESP 24; O2SAT 100
[2024-12-15 08:41] VITALS: BP 120/68; PULSE 85; RESP 20; O2SAT 100
== END 2024-12-15 08:50 | disposition home or self-care (01) ==
PROVIDERS: PCP Family Medicine; Referring Provider Nurse Practitioner; Visit Provider Internal Medicine Gastroenterology
PROC: 0DJD8ZZ Inspection of Lower Intestinal Tract, Via Natural or Artificial Opening Endoscopic (ICD-10-PCS; CPT 45378; principal; 2024-12-15 08:00)
DX: Z12.11 Encounter for screening for malignant neoplasm of colon (principal); K63.5 Polyp of colon; K64.8 Other hemorrhoids; K57.30 Diverticulosis of large intestine without perforation or abscess without bleeding; Z98.890 Other specified postprocedural states; Z90.49 Acquired absence of other specified parts of digestive tract; Z87.19 Personal history of other diseases of the digestive system; Z80.9 Family history of malignant neoplasm, unspecified; Z82.49 Family history of ischemic heart disease and other diseases of the circulatory system
CPT/HCPCS: 45385; 88305; J2003; J2371; J2704; J7120